=== PATIENT | female | born 2000 | race Caucasian/White ===

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

== ENCOUNTER → 2022-03-21 16:54 | Outpatient (BNVA) | payer MEDICAID, SELFPAY | PROVIDERS: PCP Nurse Practitioner Family; Visit Provider Nurse Practitioner Family | DX: Z13.6 Encounter for screening for cardiovascular disorders (principal); E55.9 Vitamin D deficiency, unspecified; R73.9 Hyperglycemia, unspecified; E03.9 Hypothyroidism, unspecified; R35.0 Frequency of micturition | CPT/HCPCS: 80053; 80061; 81000; 81025; 82306; 83036; 84439; 84443; 85025 ==

== ENCOUNTER → 2022-07-02 09:23 | Outpatient (BNVA) | payer MEDICAID, SELFPAY | PROVIDERS: PCP Nurse Practitioner Family; Visit Provider Nurse Practitioner Family | DX: E03.9 Hypothyroidism, unspecified (principal); E55.9 Vitamin D deficiency, unspecified | CPT/HCPCS: 80053; 82306; 84439; 84443; 85025 ==

== ENCOUNTER → 2022-07-05 15:03 | Outpatient (BNVA) | payer MEDICAID, SELFPAY | PROVIDERS: PCP Nurse Practitioner Family; Visit Provider Nurse Practitioner Family | DX: N93.9 Abnormal uterine and vaginal bleeding, unspecified (principal); R74.8 Abnormal levels of other serum enzymes; M25.50 Pain in unspecified joint; E55.9 Vitamin D deficiency, unspecified; E03.9 Hypothyroidism, unspecified; R79.89 Other specified abnormal findings of blood chemistry; M79.602 Pain in left arm | CPT/HCPCS: 81025 ==

== ENCOUNTER → 2022-07-09 15:05 | Outpatient (BNVA) | payer MEDICAID, SELFPAY | PROVIDERS: PCP Nurse Practitioner Family; Visit Provider Nurse Practitioner Family | DX: M25.50 Pain in unspecified joint (principal) | CPT/HCPCS: 84550; 85651; 86038; 86140; 86200; 86431 ==

== ENCOUNTER → 2022-08-06 09:22 | Outpatient (BNVA) | payer MEDICAID, SELFPAY | PROVIDERS: PCP Family Medicine; Visit Provider Family Medicine | DX: E03.9 Hypothyroidism, unspecified (principal); R79.89 Other specified abnormal findings of blood chemistry; Z51.81 Encounter for therapeutic drug level monitoring | CPT/HCPCS: 80053; 84439; 84443; 84481 ==

== ENCOUNTER 2022-09-10 09:33 | Outpatient (CLI) | payer MEDICAID, SELFPAY ==
--- NOTE | 2022-09-10 09:30 | US_ITS ---
WS: [id number] Complete ABDOMINAL ULTRASOUND HISTORY: R74.8 - Abnormal levels of other serum enzymes COMPARISON: Gallbladder ultrasound 12/05/2021 Liver: 15.0 cm in length. Liver is normal size and echogenicity with no mass or intrahepatic dilatati on. Portal Vein: Normal hepatopetal flow with monophasic waveform. Gallbladder: Prior cholecystectomy. Pancreas: Normal size and echogenicity. CBD: 0.2 cm. Right kidney: 10.8 cm x 4.1 cm x 4.0 cm. No mass, cortical thickening or hydronephrosis. Left kidney: 9.8 cm x 3.6 cm x 3.6 cm. No mass, cortical thickening or hydronephrosis. Spleen: Normal size and echogenicity. Abdominal aorta and IVC are within normal limits. No ascites. US/US abdomen complete* [id number] IMPRESSION: 1. Normal liver. No bile duct dilatation. 2. No renal obstruction. 3. Prior cholecystectomy.
== END 2022-09-10 09:34 | disposition home or self-care (01) ==
LOC: RAD 09:33
PROVIDERS: PCP Family Medicine; Visit Provider Nurse Practitioner Family
DX: R74.8 Abnormal levels of other serum enzymes (principal); Z90.49 Acquired absence of other specified parts of digestive tract
CPT/HCPCS: 76700

== ENCOUNTER → 2022-10-03 13:14 | Outpatient (BNVA) | payer MEDICAID, SELFPAY | PROVIDERS: PCP Family Medicine; Visit Provider Family Medicine | DX: M25.50 Pain in unspecified joint (principal); E03.9 Hypothyroidism, unspecified; M54.16 Radiculopathy, lumbar region | CPT/HCPCS: 84439; 84443; 85651; 86141 ==

== ENCOUNTER 2022-11-17 06:00 | Outpatient (RCR) | payer MEDICAID, SELFPAY | END 2022-12-17 23:59 | disposition home or self-care (01) | LOC: APT 06:00 | PROVIDERS: PCP Family Medicine; Visit Provider Nurse Practitioner Family | DX: M54.16 Radiculopathy, lumbar region (principal) | CPT/HCPCS: 97110; 97161 ==

== ENCOUNTER 2022-12-18 06:00 | Outpatient (RCR) | payer MEDICAID, SELFPAY | END 2023-01-14 23:59 | disposition home or self-care (01) | LOC: APT 06:00 | PROVIDERS: PCP Family Medicine; Visit Provider Nurse Practitioner Family | DX: M54.16 Radiculopathy, lumbar region (principal) | CPT/HCPCS: 97110 ==

== ENCOUNTER 2023-01-15 06:00 | Outpatient (RCR) | payer MEDICAID, SELFPAY | END 2023-02-14 23:59 | disposition home or self-care (01) | LOC: APT 06:00 | PROVIDERS: PCP Family Medicine; Visit Provider Nurse Practitioner Family | DX: M54.16 Radiculopathy, lumbar region (principal) | CPT/HCPCS: 97110; 97112 ==

== ENCOUNTER → 2023-01-22 10:51 | Outpatient (BNVA) | payer MEDICAID, SELFPAY | PROVIDERS: PCP Family Medicine; Visit Provider Nurse Practitioner Women's Health | DX: Z32.01 Encounter for pregnancy test, result positive (principal); Z32.02 Encounter for pregnancy test, result negative; E03.9 Hypothyroidism, unspecified; N91.2 Amenorrhea, unspecified | CPT/HCPCS: 81025; 84146; 84315; 84439; 84443; 84702 ==

== ENCOUNTER → 2023-01-24 10:00 | Outpatient (BNVA) | payer MEDICAID, SELFPAY | PROVIDERS: PCP Family Medicine; Visit Provider Nurse Practitioner Women's Health | DX: N93.9 Abnormal uterine and vaginal bleeding, unspecified (principal) | CPT/HCPCS: 84702 ==

== ENCOUNTER → 2023-01-27 13:10 | Outpatient (BNVA) | payer MEDICAID, SELFPAY | PROVIDERS: PCP Family Medicine; Visit Provider Obstetrics & Gynecology | DX: O20.0 Threatened abortion (principal) | CPT/HCPCS: 76817; 84702 ==

== ENCOUNTER → 2023-01-29 12:45 | Outpatient (BNVA) | payer MEDICAID, SELFPAY | PROVIDERS: PCP Family Medicine; Visit Provider Nurse Practitioner Women's Health | DX: N93.9 Abnormal uterine and vaginal bleeding, unspecified (principal) | CPT/HCPCS: 84702 ==

== ENCOUNTER → 2023-02-11 14:00 | Outpatient (BNVA) | payer MEDICAID, SELFPAY | PROVIDERS: PCP Family Medicine; Visit Provider Nurse Practitioner Women's Health | DX: Z34.90 Encounter for supervision of normal pregnancy, unspecified, unspecified trimester (principal); E03.9 Hypothyroidism, unspecified | CPT/HCPCS: 81000; 84439; 84443 ==

== ENCOUNTER 2023-03-03 18:02 | Emergency (ER) | payer MEDICAID, SELFPAY ==
[2023-03-03 18:07] VITALS: BP 147/84; PULSE 81; RESP 18; TEMP 36.6; O2SAT 98; BMI 36.6
[2023-03-03 19:29] LABS: Basophils % 0.4 %; Eosinophils # 0.1 10^3/uL (0.0-0.8); Eosinophils % 1.1 %; Hemoglobin 13.6 g/dL (11.5-15.3); Lymphocytes # 2.2 10^3/uL (1.5-6.5); Lymphocytes % 20.5 %; Mean Corpuscular Hemoglobin 29.3 pg (28.0-34.0); Mean Corpuscular Volume 86.2 fl (81-99); Mean Platelet Volume 11.4 fL (7.4-10.4); Monocytes # 0.6 10^3/uL (0.2-0.9); Monocytes % 5.6 %; Neutrophils # 7.87 10^3/uL (1.8-8.0); Nucleated Red Blood Cells % 0 %; Platelet Count 250 10^3/cmm (130-400); Red Blood Count 4.64 10^6/uL (4.1-5.3); Red Cell Distribution Width 12.8 % (12.1-15.1); White Blood Count 10.9 10^3/uL (4.5-13.0)
--- NOTE | 2023-03-04 06:10 | ED_ITS ---
HPI - Female Genitourinary General: Chief complaint: Urogenital-Female Stated complaint: 9-12 Weeks Preg\Bleeding History of Present Illness: Patient left without being seen. Her triage was done after I had completed my shift. Date of Last Menstrual Period: 12/02/22 [facility] ED PFSH: Medical History No pertinent past medical history Denies: diabetes, asthma, hypertension, seizures, DVT/PE. Primary care provider is at the [facility] Surgical History History of placement of ear tubes Hx of colonoscopy (~2017) negative S/P laparoscopy 10/29/2018--left partial salpingectomy with removal of paratubal cyst by Dr. Falk at [facility]. On laparoscopy she was noted to have poor is left paratubal cyst. Attempt was made to resect this cyst without damaging the tube however bleeding was encountered and pathology like to be removed. Cytology done was benign. Pathology of the cyst showed benign simple paratubal cyst measuring 4 x 3 x 2 cm. S/P tonsillectomy and adenoidectomy And tympanostomy at age 9 Status post delivery 03/12/2021--primary low transverse delivery for arrest of dilation performed by Dr. Falk at [facility]. Primary low transverse delivery wit h double layer closure, 2 cm inferior extension in the middle of the lower segment, hemorrhage due to atony with an EBL of 1200 but responded to uterotonic's Status post laparoscopic cholecystectomy (12/17/21) Status post surgery Ligament repair to right thumb in 2016 Family History Family/Other Diabetes maternal aunt, maternal uncle, cousin --- All Type 1 Heart disease maternal great uncle, maternal great aunt Mother Diabetes Type2 Grandmother Thyroid condition maternal Denies family history of Colon cancer Ovarian cancer Hyperlipidemia Breast cancer Anesthesia complication Hypertension Uterine cancer Stroke Social History Smoking and tobacco status: current some day smoker e-cigarettes E-Cigarette Details: vaporizer device E-cig/vape details: vapes about daily Second hand smoke exposure: No Alcohol intake: never Marital status: Single Number of children: 1 Current gender identity: Female Special timoteo needs: No Female Reproductive History: Date of last menstrual period: 12/02/22 Course Vital Signs: Vital signs: Vital Signs Temperature 97.9 F 03/03/23 18:07 Pulse Rate 81 03/03/23 18:07 Respiratory Rate 18 03/03/23 18:07 Blood Pressure 147/84 03/03/23 18:07 Pulse Oximetry 98 03/03/23 18:07 Oxygen Delivery Me thod Room Air 03/03/23 18:07 MDM - Female Medical Decision Making Patient left without being seen. Lab Data 03/03/23 19:15 Laboratory Results WBC 10.9 10^3/uL (4.5-13.0) 03/03/23 19:15 RBC 4.64 10^6/uL (4.1-5.3) 03/03/23 19:15 Hgb 13.6 g/dL (11.5-15.3) 03/03/23 19:15 Hct 40.0 % (37.0-47.0) 03/03/23 19:15 MCV 86.2 fl (81-99) 03/03/23 19:15 MCH 29.3 pg (28.0-34.0) 03/03/23 19:15 MCHC 34.0 g/dL (30.0-36.0) 03/03/23 19:15 RDW 12.8 % (12.1-15.1) 03/03/23 19:15 Plt Count 250 10^3/cmm (130-400) 03/03/23 19:15 MPV 11.4 fL (7.4-10.4) H 03/03/23 19:15 Neut % (Auto) 72.0 % 03/03/23 19:15 Lymph % (Auto) 20.5 % 03/03/23 19:15 [place] % (Auto) 5.6 % 03/03/23 19:15 Eos % (Auto) 1.1 % 03/03/23 19:15 Baso % (Auto) 0.4 % 03/03/23 19:15 Neut # (Auto) 7.87 10^3/uL (1.8-8.0) 03/03/23 19:15 Lymph # (Auto) 2.2 10^3/uL (1.5-6.5) 03/03/23 19:15 [place] # (Auto) 0.6 10^3/uL (0.2-0.9) 03/03/23 19:15 Eos # (Auto) 0.1 10^3/uL (0.0-0.8) 03/03/23 19:15 Baso # (Auto) 0.0 10^3/uL (0.0-0.1) 03/03/23 19:15 Nucleated RBC % (auto) 0 % 03/03/23 19:15 Nucleated RBCs # 0.0 /100WBC 03/03/23 19:15 Ser , Semi-Qnt 30434.00 mIU/mL 03/03/23 19:15 Discharge Plan Discharge Patient Disposition: Left Without Being Seen Coding Level of Care Code ED Supervisor [employer] for Yassine Rogers
== END 2023-03-03 22:19 | disposition left against medical advice (07) ==
PROVIDERS: Emergency Medicine; Emergency Provider Family Medicine; PCP Obstetrics & Gynecology
DX: O20.9 Hemorrhage in early pregnancy, unspecified (principal); Z3A.00 Weeks of gestation of pregnancy not specified; Z53.21 Procedure and treatment not carried out due to patient leaving prior to being seen by health care provider
CPT/HCPCS: 36415; 80307; 80503; 81000; 83036; 84443; 84702; 85025; 85027; 86592; 86695; 86696; 86762; 86803; 86850; 86870; 86900; 87086; 87340; 87806

== ENCOUNTER → 2023-03-12 09:08 | Outpatient (BNVA) | payer MEDICAID, SELFPAY | PROVIDERS: PCP Obstetrics & Gynecology; Visit Provider Obstetrics & Gynecology | DX: Z34.90 Encounter for supervision of normal pregnancy, unspecified, unspecified trimester (principal) | CPT/HCPCS: 81000 ==

== ENCOUNTER → 2023-03-13 12:37 | Outpatient (BNVA) | payer MEDICAID, SELFPAY | PROVIDERS: PCP Obstetrics & Gynecology; Visit Provider Obstetrics & Gynecology | DX: E03.9 Hypothyroidism, unspecified (principal); O99.280 Endocrine, nutritional and metabolic diseases complicating pregnancy, unspecified trimester | CPT/HCPCS: 82950; 85025 ==

== ENCOUNTER → 2023-03-26 10:40 | Outpatient (BNVA) | payer MEDICAID, SELFPAY | PROVIDERS: PCP Obstetrics & Gynecology; Visit Provider Obstetrics & Gynecology | DX: O09.899 Supervision of other high risk pregnancies, unspecified trimester (principal); Z3A.00 Weeks of gestation of pregnancy not specified | CPT/HCPCS: 81000; 87491; 87591; 87661 ==

== ENCOUNTER → 2023-04-23 09:50 | Outpatient (BNVA) | payer MEDICAID, SELFPAY | PROVIDERS: PCP Obstetrics & Gynecology; Visit Provider Obstetrics & Gynecology | DX: O09.899 Supervision of other high risk pregnancies, unspecified trimester (principal); Z3A.00 Weeks of gestation of pregnancy not specified | CPT/HCPCS: 81000 ==

== ENCOUNTER → 2023-05-28 13:29 | Outpatient (BNVA) | payer MEDICAID, SELFPAY | PROVIDERS: PCP Obstetrics & Gynecology; Visit Provider Obstetrics & Gynecology | DX: O09.899 Supervision of other high risk pregnancies, unspecified trimester (principal); Z3A.21 21 weeks gestation of pregnancy | CPT/HCPCS: 81000; 87086 ==

== ENCOUNTER 2023-06-14 00:14 | Outpatient (CLI) | payer MEDICAID, SELFPAY ==
[2023-06-14] VITALS (10 sets, daily range): BP systolic 97–119; BP diastolic 53–73; PULSE 81–90; RESP 16; TEMP 35.7–36.6; BMI 37.5
[2023-06-14 01:19] LABS: Bilirubin Urine Neg (Negative); Blood Urine Neg (Negative); Glucose Urine UA Norm (Normal); Ketones Urine 1+ (Negative); Leukocyte Esterase Urine Negative (Negative); Nitrate Urine Negative (Negative); Protein Urine Trace (Negative); Specific Gravity, Urine 1.025 (1.005-1.030); Urine Appearance Hazy (CLEAR); Urine Color Yellow (Yellow); Urobilinogen Urine Norm (Negative); pH Urine 6 (5-7)
[2023-06-14 01:21] LABS: Bacteria Urine 2+ /hpf; RBC Urine 0-4 /hpf (0-2); WBC Urine 0-4 /hpf (0-5)
--- NOTE | 2023-06-14 03:15 | PC.NURSE ---
Spoke to Erick in Lab regarding [facility] swab for Chlamydia, Gonorrhea and Trichomoniasis. Received instructions to label swab and send down without order in computer as this is a send out lab with no option for computer order. Sample collected 06/14/[address] James. Sample Labeled and sent to lab using tube system at 0318.
== END 2023-06-14 03:37 | disposition home or self-care (01) ==
LOC: OPOB 00:15 → OBGYN 00:15
PROVIDERS: Obstetrics & Gynecology; PCP Obstetrics & Gynecology; Visit Provider Obstetrics & Gynecology
DX: O26.899 Other specified pregnancy related conditions, unspecified trimester (principal); N89.8 Other specified noninflammatory disorders of vagina; Z3A.00 Weeks of gestation of pregnancy not specified
CPT/HCPCS: 81001; 99211

== ENCOUNTER → 2023-06-18 13:49 | Outpatient (BNVA) | payer MEDICAID, SELFPAY | PROVIDERS: PCP Family Medicine; Visit Provider Obstetrics & Gynecology | DX: O09.899 Supervision of other high risk pregnancies, unspecified trimester (principal); Z3A.24 24 weeks gestation of pregnancy | CPT/HCPCS: 81000 ==

== ENCOUNTER 2023-06-19 18:40 | Outpatient (CLI) | payer MEDICAID, SELFPAY ==
--- NOTE | 2023-06-19 18:49 | XR_ITS ---
WS: [id number] Left ankle, 3 views, 06/19/2023 Clinical Data: left ankle pain Comparison: Left ankle, 06/22/2017 Findings: No fractures or dislocations are seen. The ankle mortise is normal. The talus and calcaneus are unrem arkable. No soft tissue swelling over the medial or lateral malleolus is seen. XR/XR ankle LT min 3V* [id number] Impression: Negative left ankle.
== END 2023-06-19 18:41 | disposition home or self-care (01) ==
LOC: RAD 18:42
PROVIDERS: PCP Family Medicine; Visit Provider Emergency Medicine
DX: M25.572 Pain in left ankle and joints of left foot (principal)
CPT/HCPCS: 73610

== ENCOUNTER → 2023-07-16 09:32 | Outpatient (BNVA) | payer MEDICAID, SELFPAY | PROVIDERS: PCP Obstetrics & Gynecology; Visit Provider Obstetrics & Gynecology | DX: O09.899 Supervision of other high risk pregnancies, unspecified trimester (principal); Z3A.28 28 weeks gestation of pregnancy | CPT/HCPCS: 81000; 82950; 84443; 85025 ==

== ENCOUNTER → 2023-07-24 13:52 | Outpatient (BNVA) | payer MEDICAID, SELFPAY | PROVIDERS: PCP Family Medicine; Visit Provider Nurse Practitioner Women's Health | DX: O09.899 Supervision of other high risk pregnancies, unspecified trimester (principal); Z3A.30 30 weeks gestation of pregnancy | CPT/HCPCS: 81000 ==

== ENCOUNTER 2023-07-27 20:28 | Outpatient (CLI) | payer MEDICAID, SELFPAY ==
[2023-07-27] VITALS (20 sets, daily range): BP systolic 99–125; BP diastolic 59–84; PULSE 81–115; RESP 15–16; TEMP 36.7; O2SAT 96–100; BMI 38.2
[2023-07-27 21:47] LABS: Blood Urine 2+ (Negative); Glucose Urine UA 2+ (Normal); Ketones Urine 2+ (Negative); Protein Urine Trace (Negative); Specific Gravity, Urine 1.015 (1.005-1.030); Urine Appearance Cloudy (CLEAR); Urine Color Yellow (Yellow); pH Urine 7 (5-7)
[2023-07-27 21:48] LABS: Add Urine Culture? Yes; Bacteria Urine 3+ /hpf; Bilirubin Urine Neg (Negative); Leukocyte Esterase Urine 1+ (Negative); Mucus Urine 1+ /hpf; Nitrate Urine Negative (Negative); RBC Urine 0-4 /hpf (0-2); Urobilinogen Urine 1 mg/dL (Negative); WBC Urine 0-4 /hpf (0-5)
[2023-07-27 22:38] LABS: Glucose Point of Care 107 mg/dL (70-110)
[2023-07-27] MEDS: lactated ringers 1,000 ML 150 ML IV (23:00)
[2023-07-27] MEDS: famotidine 20 mg Tablet 10 MG PO (23:15)
[2023-07-27] MEDS: terbutaline 1 mg/mL INJ 0.25 MG SUBCUT (23:27)
[2023-07-27] MEDS: NIFEdipine 10 mg Capsule PO (23:53)
[2023-07-28] VITALS (108 sets, daily range): BP systolic 88–130; BP diastolic 50–81; PULSE 86–129; O2SAT 93–100
[2023-07-28] MEDS: ampicillin 2,000 MG in sodium chloride 0.9% (plus) 50 ML 100 MG IV (02:03)
[2023-07-28] MEDS: fentaNYL 50 mcg/mL INJ 2mL 25 MCG IVP (02:04)
[2023-07-28] MEDS: dextrose 5%-lactated ringers 1,000 ML 125 ML IV (02:04)
[2023-07-28 07:04] LABS: Bilirubin Urine Neg (Negative); Blood Urine Neg (Negative); Glucose Urine UA Norm (Normal); Ketones Urine 1+ (Negative); Leukocyte Esterase Urine Negative (Negative); Nitrate Urine Negative (Negative); Protein Urine Neg (Negative); Specific Gravity, Urine 1.025 (1.005-1.030); Urine Appearance Clear (CLEAR); Urine Color Yellow (Yellow); Urobilinogen Urine Norm (Negative); pH Urine 6 (5-7)
[2023-07-28 07:16] LABS: Add Urine Culture? No; Bacteria Urine 1+ /hpf; Mucus Urine 1+ /hpf; RBC Urine 0-4 /hpf (0-2); Squamous Epithelial Cell Urine 0-4 /hpf (0-5); WBC Urine 0-4 /hpf (0-5)
[2023-07-28] MEDS: NIFEdipine 10 mg Capsule PO (08:01)
--- NOTE | 2023-07-28 08:03 | PM.OBTRLD ---
OB L&D Triage Visit Information: Date of evaluation: 07/28/23 Reason for evaluation: threatened labor Comments/Additional reason(s) for visit: 22-year-old female G2, P1 at 30 point 4/7 weeks gestation with a JOHNIE of 10/01/2023 observed overnight on labor and delivery with complaints of painful contractions, and low back pain. Patient has history of gestational diabetes, has been following her blood sugars at home. States yesterday her blood sugar was 237. Patient states she has been with family the evening of 07/27/2023, out walking with light activities x2 hours. She admits to good movement, denies leakage of fluid or vaginal bleeding. She denies headaches of blurred vision chest pain or shortness of breath. Discussion of contractions without cervical change with patient, encouraged healthy eating and increase hydration. EFM?initially with contractions every 2 to 5 minutes with reassuring reactivity. After IV fluid hydration, 1 dose of terbutaline 0.25 mg subcu, followed by Procardia 10 mg p.o. contractions have resolved. LR IV was ordered but nursing staff accidentally administered D5LR resulting in an elevated blood sugar of 176 fasting this am, where initially it was 107at beginning of observation.. UA?initial ketones +2 after hydration +1. This was addressed with patient and the need for small frequent meals and increase hydration. Patient has a visit with Dr. James 07/29/2023 and I encouraged her to take a fasting blood sugar as well as her blood sugar log in for review. Small quality meals with types of carbs and proteins reviewed, patient understands.... Evaluation: Baseline heart rate: 130 monitor accelerations: Present 15x15 monitor decelerations: None station: -4 Laboratory results: Laboratory Tests 07/27/23 07/27/23 07/28/23 20:55 22:31 06:45 POC Glucose 107 Urine Color Yellow Yellow Urine Appearance Cloudy A Clear Urine pH 7 6 Ur Specific Gravit y 1.015 1.025 Urine Protein Trace Neg Urine Glucose (UA) 2+ H Norm Urine Ketones 2+ H 1+ H Urine Blood 2+ H Neg Urine Nitrate Negative Negative Urine Bilirubin Neg Neg Urine Urobilinogen 1 H Norm Ur Leukocyte Lissette ase 1+ H Negative Urine RBC 0-4 H 0-4 H Urine WBC 0-4 H 0-4 H Ur Squamous Epith Cells 5-10 H 0-4 H Amorphous Sediment Not Reportable Not Reportable Urine Bacteria 3+ H 1+ H Urine Mucus 1+ 1+ Vital signs: Vital Signs - 24 hr 07/27/23 20:49 07/27/23 21:08 07/27/23 21:22 Temperature Pulse Rate 93 90 96 Respiratory Rate Blood Pressure 125/76 123/61 124/68 Pulse Oximetry Oxygen Delivery Me thod 07/27/23 21:37 07/27/23 21:52 07/27/23 22:08 Temperature Pulse Rate 90 94 93 Respiratory Rate Blood Pressure 121/67 125/84 104/64 Pulse Oximetry Oxygen Delivery Me thod 07/27/23 22:23 07/27/23 22:53 07/27/23 23:08 Temperature Pulse Rate 87 88 81 Respiratory Rate Blood Pressure 103/63 108/76 118/75 Pulse Oximetry Oxygen Delivery Me od 07/27/23 23:25 07/27/23 23:30 07/27/23 23:35 Temperature Pulse Rate 84 90 96 Respiratory Rate Blood Pressure [facility] 99 98 [facility] 23:38 07/27/23 23:40 07/27/23 23:45 Temperature Pulse Rate 97 107 H 108 H Respiratory Rate Blood Pressure 115/68 Pulse Oximetry 98 97 [facility] 07/27/23 23:50 07/27/23 23:53 07/27/23 23:55 Temperature Pulse Rate 112 H 115 H 113 H Respiratory Rate Blood Pressure 99/59 Pulse Oximetry 96 [facility] 07/28/23 00:00 07/28/23 00:05 07/28/23 00:08 Temperature Pulse Rate 110 H 103 H 111 H Respiratory Rate Blood Pressure 88/54 Pulse Oximetry 97 97 [facility] 07[facility]28/23 00:10 07/28/23 00:15 07/28/23 00:20 Temperature Pulse Rate 111 H 117 H 118 H Respiratory Rate Blood Pressure Pulse Oximetry 99 98 97 Oxygen Delivery Me od 07/28/23 00:22 07/28/23 00:25 07/28/23 00:30 Temperature Pulse Rate 115 H 119 H 118 H Respiratory Rate Blood Pressure 94/50 Pulse Oximetry 99 98 [facility] 07[facility]23 00:35 07/28/23 00:37 07/28/23 00:40 Temperature Pulse Rate 116 H 112 H 113 H Respiratory Rate Blood Pressure 90/52 Pulse Oximetry 96 97 Oxygen Delivery Me thod 07/28/23 00:51 07/28/23 00:53 07/28/23 00:57 Temperature Pulse Rate 111 H 125 H 114 H Respiratory Rate Blood Pressure 129/72 124/66 Pulse Oximetry 98 Oxygen Delivery Me thod 07/28/23 00:58 07/28/23 00:59 07/28/23 00:58 Temperature Pulse Rate 120 H 126 H 122 H Respiratory Rate Blood Pressure 121/66 123/65 Pulse Oximetry 97 Oxygen Delivery Me thod 07/28/23 01:00 07/28/23 01:01 07/28/23 01:02 Temperature Pulse Rate 113 H 125 H 115 H Respiratory Rate Blood Pressure 121/62 123/62 122/62 Pulse Oximetry Oxygen Delivery Me thod 07/28/23 01:03 07/28/23 01:04 07/28/23 01:03 Temperature Pulse Rate 129 H 106 H 111 H Respiratory Rate Blood Pressure 113/58 119/61 Pulse Oximetry 97 Oxygen Delivery Me thod 07/28/23 01:05 07/28/23 01:06 07/28/23 01:07 Temperature Pulse Rate 113 H 109 H 115 H Respiratory Rate Blood Pressure 113/62 110/59 104/58 Pulse Oximetry Oxygen Delivery Me thod 07/28/23 01:08 07/28/23 01:09 07/28/23 01:08 Temperature Pulse Rate 114 H 108 H 112 H Respiratory Rate Blood Pressure 109/64 122/69 Pulse Oximetry 98 Oxygen Delivery Me thod 07/28/23 01:13 07/28/23 01:18 07/28/23 01:23 Temperature Pulse Rate 110 H 118 H 108 H Respiratory Rate Blood Pressure Pulse Oximetry 98 97 98 Oxygen Delivery Me thod 07/28/23 01:25 07/28/23 01:28 07/28/23 01:33 Temperature Pulse Rate 107 H 117 H 114 H Respiratory Rate Blood Pressure 111/59 Pulse Oximetry 98 97 Oxygen Delivery Me thod 07/28/23 01:39 07/28/23 01:44 07/28/23 01:49 Temperature Pulse Rate 113 H 109 H 116 H Respiratory Rate Blood Pressure Pulse Oximetry 99 97 98 Oxygen Delivery Me thod 07/28/23 01:54 07/28/23 01:55 07/28/23 01:59 Temperature Pulse Rate 108 H 110 H 116 H Respiratory Rate Blood Pressure 110/65 Pulse Oximetry 98 97 Oxygen Delivery Me thod 07/27/23 20:55 07/28/23 02:04 07/28/23 02:10 Temperature 98.1 F Pulse Rate 105 H 117 H Respiratory Rate 15 Blood Pressure 113/70 Pulse Oximetry 97 Oxygen Delivery Me thod 07/28/23 02:09 07/28/23 02:14 07/28/23 02:19 Temperature Pulse Rate 112 H 103 H 110 H Respiratory Rate Blood Pressure Pulse Oximetry 97 97 98 Oxygen Delivery Me thod 07/28/23 02:24 07/28/23 02:25 07/28/23 02:29 Temperature Pulse Rate 102 H 104 H 107 H Respiratory Rate Blood Pressure 104/63 Pulse Oximetry 97 97 Oxygen Delivery Me thod 07/28/23 02:34 07/28/23 02:39 07/28/23 02:40 Temperature Pulse Rate 118 H 110 H 109 H Respiratory Rate Blood Pressure 95/52 Pulse Oximetry 98 97 Oxygen Delivery Me thod 07/28/23 02:44 07/28/23 02:49 07/28/23 02:55 Temperature Pulse Rate 108 H 110 H 98 Respiratory Rate Blood Pressure 98/62 Pulse Oximetry 97 98 93 Oxygen Delivery Me thod 07/28/23 02:54 07/28/23 02:59 07/28/23 03:04 Temperature Pulse Rate 103 H 111 H 106 H Respiratory Rate Blood Pressure Pulse Oximetry 96 96 97 Oxygen Delivery Me thod 07/28/23 03:09 07/28/23 03:10 07/28/23 03:14 Temperature Pulse Rate 98 103 H 103 H Respiratory Rate Blood Pressure 123/57 Pulse Oximetry 98 98 Oxygen Delivery Me thod 07/28/23 03:19 07/28/23 03:25 07/28/23 03:24 Temperature Pulse Rate 99 102 H 98 Respiratory Rate Blood Pressure 114/62 Pulse Oximetry 98 98 Oxygen Delivery Me thod 07/28/23 03:29 07/27/23 22:56 07/28/23 03:34 Temperature Pulse Rate 95 90 Respiratory Rate 16 Blood Pressure Pulse Oximetry 97 97 Oxygen Delivery Me thod 07/28/23 03:39 07/28/23 03:40 07/28/23 03:44 Temperature Pulse Rate 95 90 88 Respiratory Rate Blood Pressure 104/57 Pulse Oximetry 97 97 Oxygen Delivery Me thod 07/28/23 03:49 07/28/23 03:55 07/28/23 03:54 Temperature Pulse Rate 88 88 94 Respiratory Rate Blood Pressure 108/55 Pulse Oximetry 97 97 Oxygen Delivery Me thod 07/28/23 03:59 07/28/23 04:04 07/28/23 04:09 Temperature Pulse Rate 94 96 101 H Respiratory Rate Blood Pressure Pulse Oximetry 97 97 97 Oxygen Delivery Me thod 07/28/23 04:10 07/28/23 04:14 07/28/23 04:19 Temperature Pulse Rate 99 99 98 Respiratory Rate Blood Pressure 111/65 Pulse Oximetry 97 97 Oxygen Delivery Me thod 07/28/23 04:25 07/28/23 04:24 07/28/23 04:29 Temperature Pulse Rate 103 H 106 H 100 Respiratory Rate Blood Pressure 108/57 Pulse Oximetry 97 97 Oxygen Delivery Me thod 07/28/23 04:34 07/28/23 04:39 07/28/23 04:40 Temperature Pulse Rate 95 96 97 Respiratory Rate Blood Pressure 118/64 Pulse Oximetry 97 98 Oxygen Delivery Me thod 07/28/23 04:44 07/28/23 04:49 07/28/23 04:49 Temperature Pulse Rate 91 101 H Respiratory Rate Blood Pressure Pulse Oximetry 98 94 98 Oxygen Delivery Me thod 07/28/23 04:49 07/28/23 04:56 07/28/23 05:01 Temperature Pulse Rate 104 H 99 102 H Respiratory Rate Blood Pressure Pulse Oximetry 99 98 Oxygen Delivery Me thod 07/28/23 05:06 07/28/23 05:10 07/28/23 05:11 Temperature Pulse Rate 92 92 92 Respiratory Rate Blood Pressure 127/81 Pulse Oximetry 98 100 Oxygen Delivery Me thod 07/28/23 05:16 07/28/23 05:21 07/28/23 05:25 Temperature Pulse Rate 96 99 98 Respiratory Rate Blood Pressure 118/69 Pulse Oximetry 98 97 Oxygen Delivery Me thod 07/28/23 05:26 07/28/23 05:31 07/28/23 05:36 Temperature Pulse Rate 96 95 101 H Respiratory Rate Blood Pressure Pulse Oximetry 98 98 98 Oxygen Delivery Me thod 07/28/23 05:40 07/28/23 05:41 07/28/23 05:46 Temperature Pulse Rate 93 96 95 Respiratory Rate Blood Pressure 121/68 Pulse Oximetry 97 97 Oxygen Delivery Me thod 07/28/23 05:51 07/28/23 05:56 07/28/23 05:56 Temperature Pulse Rate 96 93 Respiratory Rate Blood Pressure 124/66 Pulse Oximetry 98 94 98 Oxygen Delivery Me od 07/28/23 05:56 07/28/23 06:01 07/28/23 06:10 Temperature Pulse Rate 101 H 101 H 93 Respiratory Rate Blood Pressure 124/67 Pulse Oximetry 98 Oxygen Delivery Me od 07/28/23 06:25 07/28/23 06:55 07/28/23 07:10 Temperature Pulse Rate 86 96 87 Respiratory Rate Blood Pressure 130/68 102/60 117/80 Pulse Oximetry Oxygen Delivery Me od 07/28/23 07:26 07/28/23 04:25 07/28/23 05:25 Temperature Pulse Rate 97 Respiratory Rate Blood Pressure 120/68 [facility] 07/28/23 04:59 07/28/23 06:04 07/28/23 06:42 Temperature Pulse Rate Respiratory Rate Blood Pressure Pulse [facility]ximetry [facility] Room Air Room Air 07/28/23 07:40 07/28/23 07:55 07/27/23 20:55 Temperature 98.1 F Pulse Rate 89 89 Respiratory Rate 15 Blood Pressure 92/51 97/59 [facility] 07/27/23 22:56 Temperature Pulse Rate Respiratory Rate 16 Blood Pressure Pulse [facility]ximetry [facility] JOHNIE Calculator Estimated Delivery Date Method Current WG Current Estimate 10/01/23 Ultrasound #1 30w 5d Other Estimates 09/08/23 LMP (Certain) 34w 0d 10/06/23 Ultrasound #2 30w 0d Final Diagnosis Final Diagnosis (1) 30 weeks gestation of : Status: Acute Code(s): Z3A.30 - 30 weeks gestation of (2) uterine contractions in third trimester, antepartum: Plan: Treated with IV hydration, terbutaline 0.25 subcu (1 dose), Procardia 10 mg p.o. x2. Resolution of contractions via EFM. Status: Acute Code(s): O47.03 - False labor before 37 completed weeks of gestation, third trimester (3) H/O: : Status: Acute Code(s): Z98.891 - History of uterine scar from previous surgery (4) Supervision of other high-risk : Status: Acute Code(s): O09.899 - Supervision of other high risk pregnancies, unspecified trimester (5) Gestational diabetes: Status: Acute Code(s): O24.419 - Gestational diabetes mellitus in , unspecified control (6) History of macrosomia in in prior , currently : Status: Acute Code(s): O09.299 - Supervision of with other poor reproductive or obstetric history, unspecified trimester (7) History of pre-eclampsia in prior , currently : Status: Acute Code(s): O09.299 - Supervision of with other poor reproductive or obstetric history, unspecified trimester (8) History of hemorrhage: Status: Acute Code(s): Z87.59 - Personal history of other complications of , childbirth and the puerperium (9) Hypothyroidism affecting : Status: Acute Code(s): O99.280 - Endocrine, nutritional and metabolic diseases complicating , unspecified trimester; E03.9 - Hypothyroidism, unspecified Other Information/Follow up P. Will discharge to home patient encouraged to keep follow-up appointment tomorrow 07/29/[address] James. Patient is encouraged to take her fasting blood sugar as well as her blood sugar log in for review at that visit. Patient is encouraged to continue increased hydration as well as small frequent nutritious meals. Patient encouraged to return to labor and delivery if painful contractions, leakage of fluid vaginal bleeding or decreased movement occurs. Patient verbalizes understanding.. Coding Level of Care Code Acute Code for Chg Fwd Diagnoses 30 weeks gestation of Z3A.30 uterine contractions in third trimester, antepartum O47.03 H/O: Z98.891 Supervision of other high-risk O09.899 Gestational diabetes O24.419 History of macrosomia in in prior , currently O09.299 History of pre-eclampsia in prior , currently O09.299 History of hemorrhage Z87.59 Hypothyroidism affecting O99.280; E03.9
[2023-07-28 08:17] LABS: Glucose Point of Care 176 mg/dL (70-110)
== END 2023-07-28 08:00 | disposition home or self-care (01) ==
LOC: OPOB 20:29 → OBGYN 20:30
PROVIDERS: PCP Family Medicine; Visit Provider Obstetrics & Gynecology
DX: O47.03 False labor before 37 completed weeks of gestation, third trimester (principal); Z3A.30 30 weeks gestation of pregnancy; Z98.891 History of uterine scar from previous surgery; O24.419 Gestational diabetes mellitus in pregnancy, unspecified control; O09.299 Supervision of pregnancy with other poor reproductive or obstetric history, unspecified trimester; Z87.59 Personal history of other complications of pregnancy, childbirth and the puerperium; O99.280 Endocrine, nutritional and metabolic diseases complicating pregnancy, unspecified trimester; E03.9 Hypothyroidism, unspecified
CPT/HCPCS: 36415; 36416; 59025; 81001; 82962; 87086; 96372; 96374; 99211; J0290; J3010; J3105; J7120; J7121

== ENCOUNTER 2023-07-29 20:27 | Outpatient (CLI) | payer MEDICAID, SELFPAY ==
[2023-07-29 20:22] VITALS: BMI 38.4
[2023-07-29 20:39] VITALS: BP 129/76; PULSE 97
[2023-07-29 21:29] VITALS: BP 129/76; PULSE 83; RESP 16; TEMP 36.6
[2023-07-29 21:39] VITALS: RESP 16; TEMP 36.6
[2023-07-29 21:47] LABS: Nitrazine Paper, PH Negative
== END 2023-07-29 21:30 | disposition home or self-care (01) ==
LOC: OPOB 20:28 → OBGYN 20:32
PROVIDERS: PCP Family Medicine; Visit Provider Obstetrics & Gynecology
DX: O26.899 Other specified pregnancy related conditions, unspecified trimester (principal); Z3A.00 Weeks of gestation of pregnancy not specified
CPT/HCPCS: 59025; 81000; 83986; 99211

== ENCOUNTER → 2023-07-31 09:38 | Outpatient (BNVA) | payer MEDICAID, SELFPAY | PROVIDERS: PCP Obstetrics & Gynecology; Visit Provider Obstetrics & Gynecology | DX: O09.299 Supervision of pregnancy with other poor reproductive or obstetric history, unspecified trimester (principal); Z3A.00 Weeks of gestation of pregnancy not specified | CPT/HCPCS: 84156 ==

== ENCOUNTER → 2023-08-04 15:32 | Outpatient (BNVA) | payer MEDICAID, SELFPAY | PROVIDERS: PCP Obstetrics & Gynecology; Visit Provider Obstetrics & Gynecology | DX: O09.899 Supervision of other high risk pregnancies, unspecified trimester (principal); Z3A.00 Weeks of gestation of pregnancy not specified | CPT/HCPCS: 81000 ==

== ENCOUNTER 2023-08-25 16:40 | Outpatient (CLI) | payer MEDICAID, SELFPAY ==
[2023-08-25 16:40] VITALS: BMI 40.0
[2023-08-25 16:51] VITALS: BP 125/80; PULSE 104
[2023-08-25 17:11] VITALS: BP 131/88; PULSE 101
== END 2023-08-25 17:17 | disposition home or self-care (01) ==
LOC: OPOB 16:44 → OBGYN 16:46
PROVIDERS: PCP Family Medicine; Visit Provider Family Medicine
DX: O24.419 Gestational diabetes mellitus in pregnancy, unspecified control (principal); Z3A.00 Weeks of gestation of pregnancy not specified
CPT/HCPCS: 59025; 99211

== ENCOUNTER 2023-08-29 01:30 | Outpatient (CLI) | payer MEDICAID, SELFPAY ==
[2023-08-29 01:42] VITALS: BP 130/78; PULSE 87; TEMP 35.8
[2023-08-29 01:45] VITALS: BMI 40.6
[2023-08-29 02:26] VITALS: BP 121/73; PULSE 86
== END 2023-08-29 03:08 | disposition home or self-care (01) ==
LOC: OPOB 01:39 → OBGYN 01:41
PROVIDERS: PCP Family Medicine; Visit Provider Family Medicine
DX: O46.90 Antepartum hemorrhage, unspecified, unspecified trimester (principal); Z3A.00 Weeks of gestation of pregnancy not specified
CPT/HCPCS: 59025; 99211

== ENCOUNTER 2023-08-29 10:30 | Outpatient (CLI) | payer MEDICAID, SELFPAY ==
[2023-08-29 10:49] VITALS: BP 123/85; PULSE 108
[2023-08-29 10:53] VITALS: RESP 17
--- NOTE | 2023-08-29 10:53 | US_ITS ---
WS: [id number] ULTRASOUND OB FOCUSED HISTORY: vaginal bleeding COMPARISON: 05/21/2023. Single intrauterine gestation is identified. Fetus in vertex position. The cervix is obscured by the head. heart rate at 157 BPM. Placenta is fundal and anterior. Grade 1 placenta. No abruption or previa is identified on this exami nation. Normal amount of amniotic fluid. IMPRESSION: 1. Normal cardiac activity. 2. Fundal/anterior placenta. No abruption.
[2023-08-29 11:05] VITALS: BP 126/90; PULSE 108
[2023-08-29 11:09] VITALS: BMI 40.6
[2023-08-29 11:19] VITALS: BP 125/82; PULSE 93
== END 2023-08-29 11:40 | disposition home or self-care (01) ==
LOC: OPOB 10:34 → OBGYN 10:42
PROVIDERS: PCP Family Medicine; Visit Provider Family Medicine
DX: O46.90 Antepartum hemorrhage, unspecified, unspecified trimester (principal); Z3A.00 Weeks of gestation of pregnancy not specified
CPT/HCPCS: 59025; 76815; 99211

== ENCOUNTER 2023-09-01 14:25 | Outpatient (CLI) | payer MEDICAID, SELFPAY ==
[2023-09-01 14:37] VITALS: TEMP 36.2
[2023-09-01 14:38] VITALS: BP 123/84; PULSE 94
[2023-09-01 14:58] VITALS: BP 128/79; PULSE 101
== END 2023-09-01 15:21 | disposition home or self-care (01) ==
LOC: OPOB 14:29 → OBGYN 14:30
PROVIDERS: PCP Family Medicine; Visit Provider Family Medicine
DX: O24.419 Gestational diabetes mellitus in pregnancy, unspecified control (principal); Z3A.00 Weeks of gestation of pregnancy not specified
CPT/HCPCS: 59025; 80503; 86850; 86870; 86900; 99211

== ENCOUNTER → 2023-09-03 13:37 | Outpatient (BNVA) | payer MEDICAID, SELFPAY | PROVIDERS: PCP Family Medicine; Visit Provider Family Medicine | DX: R76.8 Other specified abnormal immunological findings in serum (principal) | CPT/HCPCS: 86886 ==

== ENCOUNTER 2023-09-10 07:17 | Outpatient (CLI) | payer MEDICAID, SELFPAY ==
--- NOTE | 2023-09-10 07:45 | US_ITS ---
WS: [id number] ULTRASOUND OB FOCUSED HISTORY: Positive antibody screen, gDM, evaluate umbilical Doppler. COMPARISON: None available. No similar studies. Prior ultrasound 08/29/2023 heart rate at 150 BPM. UMBILICAL ARTERY DOPPLER Waveform analysis: Normal systolic and diastolic velocities. Diastolic velocity remains above the bas janna. Normal upstroke of waveform. SD ratios: SD ratios range from 1.9-2.6, depending upon the location along the umbilical artery. Resistivity indices: 0.5-0.6 Normal amount of amniotic fluid. Single deep vertical pocket 6.2 cm. IMPRESSION: 1. Normal SD ratios. SD ratio is estimated between the 25th and 50th percentile for age. 2. Resistivity indices are also normal and estimated between the 25th and 75th percentile for age.
[2023-09-10 08:04] VITALS: BP 137/83; PULSE 90; TEMP 35.7
[2023-09-10 08:09] VITALS: BMI 42.0
[2023-09-10 08:15] VITALS: RESP 15; TEMP 36.6
[2023-09-10 08:34] VITALS: BP 137/83; PULSE 90; RESP 15; TEMP 36.6
[2023-09-10 09:56] VITALS: TEMP 35.7
[2023-09-10 09:57] VITALS: BP 133/92; PULSE 76
== END 2023-09-10 08:35 | disposition home or self-care (01) ==
LOC: RAD 07:17 → OBGYN 07:59
PROVIDERS: PCP Family Medicine; Visit Provider Family Medicine
DX: O09.899 Supervision of other high risk pregnancies, unspecified trimester (principal); R76.8 Other specified abnormal immunological findings in serum; Z3A.00 Weeks of gestation of pregnancy not specified
CPT/HCPCS: 59025; 76816; 76820

== ENCOUNTER → 2023-11-03 13:11 | Outpatient (BNVA) | payer MEDICAID, SELFPAY | PROVIDERS: PCP Family Medicine; Visit Provider Family Medicine | DX: E03.9 Hypothyroidism, unspecified; Z51.81 Encounter for therapeutic drug level monitoring; Z39.2 Encounter for routine postpartum follow-up; M54.16 Radiculopathy, lumbar region | CPT/HCPCS: 82947; 84439; 84443; 85025 ==

== ENCOUNTER → 2024-01-06 11:41 | Outpatient (BNVA) | payer MEDICAID, SELFPAY | PROVIDERS: PCP Family Medicine; Visit Provider Family Medicine | DX: R73.03 Prediabetes | CPT/HCPCS: 83036 ==

== ENCOUNTER → 2024-01-29 10:45 | Outpatient (BNVA) | payer MEDICAID, SELFPAY | PROVIDERS: PCP Family Medicine; Visit Provider Family Medicine | DX: Z01.419 Encounter for gynecological examination (general) (routine) without abnormal findings (principal) | CPT/HCPCS: 84439; 84443; 85025; 87624 ==

== ENCOUNTER 2024-04-25 22:58 | Emergency (ER) | payer MEDICAID, SELFPAY ==
[2024-04-25 23:01] VITALS: BP 108/76; PULSE 81; RESP 18; TEMP 36.7; O2SAT 98; BMI 36.3
--- NOTE | 2024-04-25 23:10 | CTR_ITS ---
PROCEDURE INFORMATION: Exam: CT Abdomen And Pelvis With Contrast Exam date and time: 04/26/2024 12:12 AM Age: 23 years old Clinical indication: Abdominal pain; Localized; Prior surgery; Surgery date: 6+ months; Surgery type: Gb. Csection x2. Patient HX: Lower abd/pelvic pain with nausea. ; Additional info: Abd pain TECHNIQUE: Imaging protocol: Computed tomography of the abdomen and pelvis with contrast. Radiation optimization: All CT scans at this facility use at least one of these dose optimization techniques: automated exposure control; mA and/or kV adjustment per patient size (includes targeted exams where dose is matched to clinical indication); or iterative reconstruction. Contrast material: OMNI 350; Contrast volume: 100 ml; Contrast route: INTRAVENOUS (IV); COMPARISON: CT angio chest w abd pel w con 11/01/2018 7:38 PM RADIATION DOSE METRICS: Total DLP (mGy-cm): 903.66 FINDINGS: Lungs: Right lower lobe 3.9 cm stable apparent bulla with some thickening of the wall, similar dating back to 11/01/2018 suggestive of a benign process given stability. Liver: Normal. No mass. Gallbladder and bile ducts: Cholecystectomy. Pancreas: Normal. No ductal dilation. Spleen: Normal. No splenomegaly. Adrenal glands: Normal. No mass. Kidneys and ureters: Normal. No hydronephrosis. Stomach and bowel: Prominent fluid in the small bowel without dilation may reflect an enteritis. Appendix: No evidence of appendicitis. Intraperitoneal space: Unremarkable. No free air. No significant fluid collection. Vasculature: Unremarkable. No abdominal aortic aneurysm. Lymph nodes: Scattered subcentimeter short axis mesenteric lymph nodes, nonspecific. Urinary bladder: Unremarkable as visualized. Reproductive: Fluid in the uterine cavity likely related menstrual status. Bones/joints: Unremarkable. No acute fracture. Soft tissues: Unremarkable. CT/CT abdomen pelvis w con* [id number] IMPRESSION: 1. Prominent fluid in the small bowel without dilation may reflect an enteritis. 2. Fluid in the uterine cavity likely related menstrual status. 3. Right lower lobe 3.9 cm stable apparent bulla with some thickening of the wall, similar dating back to 11/01/2018 suggestive of a benign process given stability. 4. Cholecystectomy. 5. Scattered subcentimeter short axis mesenteric lymph nodes, nonspecific.
--- NOTE | 2024-04-25 23:11 | W.ED.ABDPA2 ---
HPI - Abdominal Pain General: Chief Complaint: Abdominal Pain Stated Complaint: lower abd pain Time Seen by Provider: 04/25/24 23:01 Source: patient Mode of arrival: ambulatory Limitations: no limitations History of Present Illness: 23-year-old female states she been having lower abdominal pain states she been having cramping pain throughout the day and then 2 hours ago much worse. States pain sharp in nature in her lower abdomen she rates pain 8 out of 10 denies any dysuria denies any vaginal bleeding denies any vomiting diarrhea Associated Symptoms: Denies chills, diarrhea, dysuria, fever(s), nausea and vomiting Related Data: Date of Last Menstrual Period: 04/18/24 Review of Systems Const: Denies: fever(s), chills, body aches or change in appetite ENMT: Denies: throat pain or dental pain Card: Denies: chest pain Resp: Denies: dyspnea GI: Reports: abdominal pain; Denies: nausea, vomiting or diarrhea : Denies: dysuria Musc: Denies: neck pain or back pain Skin/Breast: Denies: rash Neuro: Denies: headache(s) PFSH ED PFSH: Medical History No pertinent past medical history Denies: diabetes, asthma, hypertension, seizures, DVT/PE. Primary care provider is at the [facility] Surgical History History of placement of ear tubes Status post laparoscopic cholecystectomy (12/17/21) Status post delivery 03/12/2021--primary low transverse delivery for arrest of dilation performed by Dr. Falk at [facility] [place]. Primary low transverse delivery with double layer closure, 2 cm inferior extension in the middle of the lower segment, hemorrhage due to atony with an EBL of 1200 but responded to uterotonic's - rLTCS - 09/08 - [place] Hx of colonoscopy (~2017) negative S/P tonsillectomy and adenoidectomy And tympanostomy at age 9 Status post surgery Ligament repair to right thumb in 2016 S/P laparoscopy 10/29/2018--left partial salpingectomy with removal of paratubal cyst by Dr. Falk at [facility] [place]. On laparoscopy she was noted to have poor is left paratubal cyst. Attempt was made to resect this cyst without damaging the tube however bleeding was encountered and pathology like to be removed. Cytology done was benign. Pathology of the cyst showed benign simple paratubal cyst measuring 4 x 3 x 2 cm. Family History Family/Other Diabetes maternal aunt, maternal uncle, cousin --- All Type 1 Heart disease maternal great uncle, maternal great aunt Mother Diabetes Type2 Grandmother Thyroid disease maternal Denies family history of Colon cancer Ovarian cancer Hyperlipidemia Breast cancer Anesthesia complication Hypertension Uterine cancer Stroke Social History Smoking and tobacco/nicotine status: never used tobacco/nicotine Alcohol intake: current Alcohol intake frequency: few times a month Substance/Drug Use: never Female Reproductive History: Date of last menstrual period: 04/18/24 Physical Exam Const: COMMON NORMALS: no acute distress, patient oriented x3 and healthy appearing HENMT: COMMON NORMALS: normocephalic and atraumatic HEAD & SCALP: normocephalic and atraumatic Eye: COMMON NORMALS: Equal, round and reactive pupils present and EOMs intact bilaterally PUPIL: Yes Equal, round and reactive pupils present Neck/C-Spine: COMMON NORMALS: full ROM Chest: COMMONS NORMALS: normal inspection of the chest Resp: COMMON NORMALS: normal respiratory effort, No retractions, No use of accessory muscles and clear to auscultation bilaterally AUSCULTATION: clear to auscultation bilaterally Cardio: COMMON NORMALS: regular rate, regular rhythm and No murmurs present (Cardio) RATE: regular rate RHYTHM: regular rhythm GI: COMMON NORMALS: Normal to inspection, nondistended, normoactive bowel sounds present, Soft to palpation and no masses PALPATION: Yes Soft to palpation and Yes Tenderness to palpation present (GI) Details: RLQ Extremity: COMMON NORMALS: normal to inspection and full ROM Neuro: COMMON NORMALS: patient oriented x3, moves all extremities and no focal motor deficits Psych: COMMON NORMALS: mental status grossly normal, Normal thought process present and cooperative THOUGHT PROCESS: Normal thought process present Skin: COMMON NORMALS: no rashes or lesions noted and no wounds GENERAL SKIN EXAM: no rashes or lesions noted Course Vital Signs: Vital signs: Vital Signs Temperature 98.0 F 04/25/24 23:01 Pulse Rate 87 04/25/24 23:47 Respiratory Rate 15 04/25/24 23:47 Blood Pressure 115/74 04/25/24 23:47 Pulse Oximetry 99 04/25/24 23:47 Oxygen Delivery Me thod Room Air 04/25/24 23:47 MDM - Abdominal Pain Medical Decision Making Patient presents for abdominal pain CT scan blood work here are normal urinalysis shows a likely UTI we will start her on antibiotics she is stable for discharge she is follow-up with PCP return if worsening Medical Records I reviewed the patient's medical records. Lab Data I reviewed the patient's lab results. 04/25/24 23:32 04/25/24 23:32 Labs/Radiology: Radiology Impressions Abdomen/Pelvis CT 04/25/24 23:10 IMPRESSION: 1. Prominent fluid in the small bowel without dilation may reflect an enteritis. 2. Fluid in the uterine cavity likely related menstrual status. 3. Right lower lobe 3.9 cm stable apparent bulla with some thickening of the wall, similar dating back to 11/01/2018 suggestive of a benign process given stability. 4. Cholecystectomy. 5. Scattered subcentimeter short axis mesenteric lymph nodes, nonspecific. Laboratory Results WBC 11.47 10^3/uL (3.29-11.43) H 04/25/24 23:32 RBC 4.77 10^6/uL (3.85-5.65) 04/25/24 23:32 Hgb 14.00 g/dL (11.27-16.99) 04/25/24 23:32 Hct 40.9 % (36-47) 04/25/24 23:32 MCV 85.7 fl (85-98) 04/25/24 23:32 MCH 29.4 pg (27-33) 04/25/24 23:32 MCHC 34.2 g/dL (30-55) 04/25/24 23:32 RDW 12.4 % (12.1-15.1) 04/25/24 23:32 Plt Count 233 10^3/cmm (157-399) 04/25/24 23:32 MPV 11.6 fL (7.4-10.4) H 04/25/24 23:32 Neut % (Auto) 74.3 % 04/25/24 23:32 Lymph % (Auto) 16.2 % 04/25/24 23:32 [place] % (Auto) 7.3 % 04/25/24 23:32 Eos % (Auto) 1.7 % 04/25/24 23:32 Baso % (Auto) 0.2 % 04/25/24 23:32 Neut # (Auto) 8.53 10^3/uL (1.8-7.7) H 04/25/24 23:32 Lymph # (Auto) 1.9 10^3/uL (0.8-4.8) 04/25/24 23:32 [place] # (Auto) 0.8 10^3/uL (0.2-0.9) 04/25/24 23:32 Eos # (Auto) 0.2 10^3/uL (0.0-0.8) 04/25/24 23:32 Baso # (Auto) 0.0 10^3/uL (0.0-0.1) 04/25/24 23:32 Nucleated RBC % (auto) 0 % 04/25/24 23:32 Nucleated RBCs # 0.0 /100WBC 04/25/24 23:32 Sodium 137 mmol/L (136-145) 04/25/24 23:32 Potassium 3.8 mmol/L (3.5-5.1) 04/25/24 23:32 Chloride 101 mmol/L (98-107) 04/25/24 23:32 Carbon Dioxide 23 mmol/L (22-29) 04/25/24 23:32 Anion Gap 16.8 (5-19) 04/25/24 23:32 BUN 11 mg/dL (6-20) 04/25/24 23:32 Creatinine 0.9 mg/dL (0.5-0.9) 04/25/24 23:32 GFR Calculation 79.0 mL/min (90-130) L 04/25/24 23:32 Glucose 132 mg/dL (65-115) H 04/25/24 23:32 Calculated Osmolality 285 mOsm/kg (285-295) 04/25/24 23:32 Calcium 9.3 mg/dL (8.5-10.5) 04/25/24 23:32 Total Bilirubin 0.6 mg/dL (0.15-1.2) 04/25/24 23:32 AST 30 U/L (0-32) 04/25/24 23:32 ALT 66 U/L (0-33) H 04/25/24 23:32 Alkaline Phosphatase 95 U/L (35-105) 04/25/24 23:32 Total Protein 7.5 g/dL (6.6-8.7) 04/25/24 23:32 Albumin 4.5 g/dL (3.5-5.2) 04/25/24 23:32 Globulin 3.0 g/dL (1.3-4.6) 04/25/24 23:32 Lipase 27 U/L (13-60) 04/25/24 23:32 HCG, Qual Negative (Negative) 04/25/24 23:32 Urine Color Yellow (Yellow) 04/25/24 23:26 Urine Appearance Clear (CLEAR) 04/25/24 23:26 Urine pH 5 (5-7) 04/25/24 23:26 Ur Specific [place] 1.025 (1.005-1.030) 04/25/24 23:26 Urine Protein Trace (Negative) 04/25/24 23:26 Urine Glucose (UA) Norm (Normal) 04/25/24 23:26 Urine Ketones 1+ (Negative) H 04/25/24 23:26 Urine Blood Neg (Negative) 04/25/24 23:26 Urine Nitrate Negative (Negative) 04/25/24 23:26 Urine Bilirubin Neg (Negative) 04/25/24 23:26 Urine Urobilinogen 1 mg/dL (Negative) H 04/25/24 23:26 Ur Leukocyte Esterase Negative (Negative) 04/25/24 23:26 Urine RBC 0-4 /hpf (0-2) H 04/25/24 23:26 Urine WBC 0-4 /hpf (0-5) H 04/25/24 23:26 Ur Squamous Epith Cells 5-10 /hpf (0-5) H 04/25/24 23:26 Amorphous Sediment Not Reportable 04/25/24 23:26 Urine Bacteria 2+ /hpf (NONE) H 04/25/24 23:26 All radiology interpretation(s) finalized by discharge Discharge Plan Discharge Patient Disposition: Home Clinical Impression: Abdominal pain Qualifiers: Abdominal location: generalized Qualified Code(s): R10.84 - Generalized abdominal pain Condition: Stable Prescriptions: New cephalexin 500 mg capsule 500 mg PO TID 7 Days Qty: 21 0RF No Action cholecalciferol (vitamin D3) 10 mcg (400 unit) capsule 10 mcg PO DAILY ferrous sulfate 325 mg (65 mg iron) tablet 325 mg PO DAILY Qty: 30 3RF levothyroxine 75 mcg tablet 75 mcg PO DAILY Qty: 30 6RF Discharge Orders: Discharge ED (Routine); Ordered 04/26/24 Ordered By: Sneha Miguel Referrals: Pablo Bledsoe MD [Primary Care Provider] - 4-7 days Discharge Diet: Advance as tolerated Discharge Activity: Resume usual activity Patient Instructions: Urinary Tract Infection in Women (ED), Abdominal Pain (ED) Coding Level of Care Code ED Assistant Property Manager for Yassine Rogers
[2024-04-25 23:38] VITALS: RESP 14
[2024-04-25] MEDS: morphine 4 mg/mL SDV 1 mL IVP (23:38)
[2024-04-25] MEDS: ondansetron 2 mg/ML SDV 2 mL 4 MG IVP (23:39)
[2024-04-25 23:42] LABS: Add Urine Microscopic? YES; Bilirubin Urine Neg (Negative); Blood Urine Neg (Negative); Glucose Urine UA Norm (Normal); Ketones Urine 1+ (Negative); Leukocyte Esterase Urine Negative (Negative); Nitrate Urine Negative (Negative); Protein Urine Trace (Negative); RBC Urine 0-4 /hpf (0-2); Specific Gravity, Urine 1.025 (1.005-1.030); Urine Appearance Clear (CLEAR); Urine Color Yellow (Yellow); Urobilinogen Urine 1 mg/dL (Negative); WBC Urine 0-4 /hpf (0-5); pH Urine 5 (5-7)
[2024-04-25] MEDS: sodium chloride 0.9% 1,000 ML 999 ML IV (23:42)
[2024-04-25 23:43] LABS: Bacteria Urine 2+ /hpf
[2024-04-25 23:44] LABS: Basophils % 0.2 %; Eosinophils # 0.2 10^3/uL (0.0-0.8); Eosinophils % 1.7 %; Hematocrit 40.9 % (36-47); Lymphocytes # 1.9 10^3/uL (0.8-4.8); Lymphocytes % 16.2 %; Mean Corpuscular HGB Conc 34.2 g/dL (30-55); Mean Corpuscular Hemoglobin 29.4 pg (27-33); Mean Corpuscular Volume 85.7 fl (85-98); Mean Platelet Volume 11.6 fL (7.4-10.4); Monocytes # 0.8 10^3/uL (0.2-0.9); Monocytes % 7.3 %; Neutrophils # 8.53 10^3/uL (1.8-7.7); Neutrophils % 74.3 %; Nucleated Red Blood Cells % 0 %; Platelet Count 233 10^3/cmm (157-399); Red Blood Count 4.77 10^6/uL (3.85-5.65); Red Cell Distribution Width 12.4 % (12.1-15.1); White Blood Count 11.47 10^3/uL (3.29-11.43)
[2024-04-25 23:47] VITALS: BP 115/74; PULSE 87; RESP 15; O2SAT 99
[2024-04-25 23:59] LABS: HCG, Serum Qual Negative (Negative)
[2024-04-26] LABS: Alanine Aminotransferase 66 U/L (0-33); Albumin Level 4.5 g/dL (3.5-5.2); Alkaline Phosphatase 95 U/L (35-105); Anion Gap 16.8 (5-19); Aspartate Amino Transferase 30 U/L (0-32); Blood Urea Nitrogen 11 mg/dL (6-20); Calcium 9.3 mg/dL (8.5-10.5); Carbon Dioxide 23 mmol/L (22-29); Chloride 101 mmol/L (98-107); Creatinine Clr Calc Pharmacy 103.2823; Glucose 132 mg/dL (65-115); Lipase 27 U/L (13-60); Osmolality Calculated 285 mOsm/kg (285-295); Potassium 3.8 mmol/L (3.5-5.1); Sodium 137 mmol/L (136-145); Total Bilirubin 0.6 mg/dL (0.15-1.2); Total Protein 7.5 g/dL (6.6-8.7)
[2024-04-26] MEDS: iohexol 350 mg/mL 500 mL Btl (per mL) IV (00:13)
[2024-04-26 00:36] VITALS: BP 143/95; PULSE 107; O2SAT 100
[2024-04-26] MEDS: cephALEXin 500 mg Capsule PO (01:08)
[2024-04-26 01:19] VITALS: BP 119/70; PULSE 95; O2SAT 98
== END 2024-04-26 01:20 | disposition home or self-care (01) ==
PROVIDERS: Emergency Provider Emergency Medicine; PCP Family Medicine
DX: R10.84 Generalized abdominal pain (principal)
CPT/HCPCS: 74177; 80053; 81001; 83690; 84703; 85025; 96361; 96374; 96375; 99285; J2270; J2405; J7030; Q9967

== ENCOUNTER → 2024-05-10 09:39 | Outpatient (BNVA) | payer MEDICAID, SELFPAY | PROVIDERS: PCP Family Medicine; Visit Provider Family Medicine | DX: Z51.81 Encounter for therapeutic drug level monitoring (principal); E03.9 Hypothyroidism, unspecified; N92.0 Excessive and frequent menstruation with regular cycle; D64.9 Anemia, unspecified; R74.01 Elevation of levels of liver transaminase levels; R51.9 Headache, unspecified | CPT/HCPCS: 80053; 83550; 84439; 84443; 85025 ==

== ENCOUNTER 2024-05-11 23:24 | Emergency (ER) | payer MEDICAID, SELFPAY ==
[2024-05-11 23:25] VITALS: BP 130/83; PULSE 73; RESP 16; TEMP 36.7; O2SAT 99
--- NOTE | 2024-05-11 23:43 | XRR_ITS ---
PROCEDURE INFORMATION: Exam: XR Chest Exam date and time: 05/11/2024 11:47 PM Age: 23 years old Clinical indication: Other: Allergic reaction; Additional info: Allergic rxn TECHNIQUE: Imaging protocol: Radiologic exam of the chest. Views: 1 view. COMPARISON: CR XR chest 2V* [id number] 12/20/2019 2:48 PM FINDINGS: Lungs: Unremarkable. No consolidation. Pleural spaces: Unremarkable. No pleural effusion. No pneumothorax. Heart/Mediastinum: Unremarkable. No cardiomegaly. Bones/joints: Unremarkable. XR/XR chest 1V portable [id number] IMPRESSION: No acute findings.
--- NOTE | 2024-05-11 23:46 | ED_ITS ---
HPI - Allergic Reaction General: Chief complaint: Allergic Reaction Stated complaint: Allergic reaction Time Seen by Provider: 05/11/24 23:31 Source: patient Mode of arrival: ambulatory Limitations: no limitations History of Present Illness: HPI narrative: Patient is a 23-year-old female presenting to the emergency department complaining of allergic reaction prior to arrival. 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 She states that normally she receives a breathing treatment, an antihistamine, and steroids and that it helps with her symptoms. She states that her throat is feeling swollen, however she denies any shortness of breath. Currently she is 99% on room air and does appear to be breathing comfortably. She does not report any other contact with anything allergic, states that this will just happen randomly. She has not seen an flexographic printing machinist, but does see her primary care for this. MD complaint: allergic reaction Onset (ago): minute(s) Exposure: other (Idiopathic hives) Associated symptoms: Reports hoarseness; Deny abdominal pain, nausea or vomiting Severity: moderate Previous Allergic Reaction History: prior ED visit(s) Review of Systems General: Reports: 10 or more systems reviewed and unremarkable except in HPI and below Const: Denies: fever(s), chills or fatigue Eyes: Denies: change in vision ENMT: Reports: hoarseness; Denies: throat pain, ear or mastoid pain or nasal discharge Card: Denies: chest pain, palpitations, swelling of feet/ankles or lightheadedness Resp: Denies: dyspnea, productive cough or wheezing GI: Denies: abdominal pain, nausea, vomiting, diarrhea or constipation : Denies: flank pain, difficulty voiding, dysuria or urinary frequency Musc: Denies: neck pain, back pain or joint pain Skin/Breast: Denies: rash Neuro: Denies: headache(s), numbness in extremities or weakness in extremities All/Imm: Reports: urticaria and throat swelling PFSH ED PFSH: Medical History Hypothyroid Surgical History History of placement of ear tubes Status post laparoscopic cholecystectomy (12/17/21) Status post delivery 03/12/2021--primary low transverse delivery for arrest of dilation performed by Dr. Falk at [facility] [place]. Primary low transverse delivery with double layer closure, 2 cm inferior extension in the middle of the lower segment, hemorrhage due to atony with an EBL of 1200 but responded to uterotonic's - rLTCS - 09/08 - [place] Hx of colonoscopy (~2017) negative S/P tonsillectomy and adenoidectomy And tympanostomy at age 9 Status post surgery Ligament repair to right thumb in 2016 S/P laparoscopy 10/29/2018--left partial salpingectomy with removal of paratubal cyst by Dr. Falk at [facility] [place]. On laparoscopy she was noted to have poor is left paratubal cyst. Attempt was made to resect this cyst without damaging the tube however bleeding was encountered and pathology like to be removed. Cytology done was benign. Pathology of the cyst showed benign simple paratubal cyst measuring 4 x 3 x 2 cm. Family History Family/Other Diabetes maternal aunt, maternal uncle, cousin --- All Type 1 Heart disease maternal great uncle, maternal great aunt Mother Diabetes Type2 Grandmother Thyroid disease maternal Denies family history of Colon cancer Ovarian cancer Hyperlipidemia Breast cancer Anesthesia complication Hypertension Uterine cancer Stroke Social History Smoking and tobacco/nicotine status: never used tobacco/nicotine Alcohol intake: current Alcohol intake frequency: few times a month Substance/Drug Use: never Physical Exam Const: COMMON NORMALS: no acute distress, patient oriented x3 and no limitations GENERAL APPEARANCE: cooperative, comfortable and well developed ORIENTATION/CONSCIOUSNESS: Yes awake, Yes oriented to person, Yes oriented to place and Yes oriented to time HENMT: COMMON NORMALS: normocephalic, atraumatic and hearing grossly normal bilaterally HEAD & SCALP: normocephalic and atraumatic OTHER: Hoarseness of voice. No obvious oropharyngeal edema. Eye: COMMON NORMALS: Equal, round and reactive pupils present, EOMs intact bilaterally and conjunctivae normal CONJUNCTIVA: Yes conjunctivae normal PUPIL: Yes Equal, round and reactive pupils present Neck/C-Spine: COMMON NORMALS: full ROM, supple and no JVD Resp: COMMON NORMALS: normal respiratory effort, No retractions, No use of accessory muscles and clear to auscultation bilaterally EFFORT & INSPECTION: Yes able to speak in complete sentences AUSCULTATION: clear to auscultation bilaterally Cardio: COMMON NORMALS: no JVD, regular rate, regular rhythm, No clicks present (Cardio), No murmurs present (Cardio) and No rub (Cardio) RATE: regular rate RHYTHM: regular rhythm GI: COMMON NORMALS: Normal to inspection, nondistended, normoactive bowel so unds present, Soft to palpation and non-tender AUSCULTATION: Yes normoactive bowel sounds PALPATION: Yes Soft to palpation RECTAL EXAM: deferred Extremity: COMMON NORMALS: normal to inspection, full ROM and capillary refill normal Neuro: COMMON NORMALS: patient oriented x3, moves all extremities, no focal motor deficits and no sensory deficits noted SENSORIUM/ORIENTATION: Yes orien michael to person, Yes oriented to place and Yes oriented to time Psych: COMMON NORMALS: mental status grossly normal and Normal thought process present THOUGHT PROCESS: Normal thought process present Skin: NARRATIVE SKIN EXAM: Hives noted to patient's chest and right breast. Course Vital Signs: Vital signs: Vital Signs Temperature 98.0 F 05/11/24 23:25 Pulse Rate 81 05/12/24 00:13 Respiratory Rate 17 05/12/24 00:06 Blood Pressure 130/83 05/11/24 23:25 Pulse Oximetry 96 05/12/24 00:06 Oxygen Delivery Me thod Room Air 05/12/24 00:06 MDM - Allergic Reaction Medical Decision Making Patient presents for acute swelling of throat hives, reports history of idiopathic hives. Her O2 saturation was normal on arrival and rest of her vitals unremarkable. Physical examination revealed her voice to be hoarse, however there is no active respiratory distress noted and there was improvement of the hives to her chest. She states that with these in the past she just re ceived steroids and a breathing treatment. After receiving breathing treatment as well as Pepcid and steroids here in the emergency department, she states she feels better. Prescription sent to her pharmacy. Chest x-ray did not demonstrate any acute abnormalities. Patient will be discharged home and return with any new or worsening. Care of patient discussed with supervising ED physician, Dr. Bernard, who agrees with disposition. XR interpretation done by ED provider, pending radiology final review Discharge Plan Discharge Patient Disposition: Home Clinical Impression: Allergic reaction Condition: Stable Prescriptions: New prednisone 20 mg tablet 60 mg PO ONCE 5 Days Qty: 15 0RF Pepcid 40 mg tablet 40 mg PO DAILY Qty: 30 0RF No Action cholecalciferol (vitamin D3) 10 mcg (400 unit) capsule 10 mcg PO DAILY ferrous sulfate 325 mg (65 mg iron) tablet 325 mg PO DAILY Qty: 30 3RF levothyroxine 75 mcg tablet 75 mcg PO DAILY Qty: 30 6RF Discharge Orders: Discharge ED (Routine); Ordered 05/12/24 Ordered By: Song Watts Referrals: Pablo Bledsoe MD [Primary Care Provider] - Discharge Diet: Usual diet Discharge Activity: Increase activity as tolerated Patient Instructions: Allergic Reaction Activity Restrictions/Additional Instructions: Steroids as prescribed. Pepcid as prescribed. Please follow-up with primary care and return with any new or worsening. Coding Level of Care Code ED Center Medical And Lab Director for Yassine Rogers
[2024-05-12] VITALS (7 sets, daily range): BP systolic 101–125; BP diastolic 62–80; PULSE 75–107; RESP 17; O2SAT 93–98
[2024-05-12] MEDS: dexamethasone 10 mg/mL INJ IVP (00:06)
[2024-05-12] MEDS: ipratropium-albuterol 3 mL Neb INHALATION (00:06)
[2024-05-12] MEDS: famotidine 20 mg/2 mL INJ 40 MG IVP (00:17)
[2024-05-12] MEDS: metoclopramide 5 mg/mL SDV 2 mL 10 MG IVP (00:29)
== END 2024-05-12 01:35 | disposition home or self-care (01) ==
PROVIDERS: Emergency Provider Physician Assistant; PCP Family Medicine
DX: T78.40XA Allergy, unspecified, initial encounter (principal); X58.XXXA Exposure to other specified factors, initial encounter
CPT/HCPCS: 71045; 94640; 96374; 96375; 99284; J1100; J2765; J3490

== ENCOUNTER → 2024-07-07 10:18 | Outpatient (BNVA) | payer MEDICAID, SELFPAY | PROVIDERS: PCP Family Medicine; Visit Provider Clinical Nurse Specialist Adult Health | DX: Z34.90 Encounter for supervision of normal pregnancy, unspecified, unspecified trimester (principal) | CPT/HCPCS: 81025 ==

== ENCOUNTER 2024-09-02 09:00 | Emergency (ER) | payer MEDICAID, SELFPAY ==
[2024-09-02 09:12] VITALS: BP 106/77; PULSE 71; RESP 16; TEMP 36.9; O2SAT 99; BMI 34.7
--- NOTE | 2024-09-02 09:40 | W.ED.ALLEREA ---
HPI - Allergic Reaction General: Chief complaint: Allergic Reaction Stated complaint: allergic reaction Time Seen by Provider: 09/02/24 09:01 Source: patient Mode of arrival: ambulatory Limitations: no limitations History of Present Illness: HPI narrative: 23-year-old female has had a history of she states idiopathic hives and allergic reaction in the past. States she had hives of the last 3 days but today this morning start having some increasing dyspnea and became concerned. States she allergic to Benadryl but has taken some Claritin at home with no relief she has not had to use steroids in the past but did not have any. Patient is currently resting comfortably in no respiratory distress denies any fever denies any worse improved factors Associated symptoms: Deny abdominal pain, nausea or vomiting Related Data Home Medications Medication Instructions Recorded Confirmed cholecalciferol (vitamin D3) 10 10 mcg PO DAILY 01/29/24 09/02/24 mcg (400 unit) capsule Previous Rx's Medication Instructions Recorded epinephrine 0.3 mg/0.3 mL 0.3 mg (0.3 mL) IM Q4H PRN 05/12/24 injection, auto-injector (EpiPen anaphylaxis #2 ea 2-Prasad) levothyroxine 88 mcg tablet 88 mcg PO DAILY #30 tabs 05/14/24 prednisone 20 mg tablet 20 mg PO DAILY 3 days #3 tabs 08/06/24 segesterone acet 0.15 mg-ethinyl 1 vag ring vaginal ONCE #1 ea 08/16/24 estradiol 0.013 mg/24 hr vaginal ring (Annovera) prednisone 50 mg tablet 50 mg PO DAILY #5 tabs 09/02/24 Allergies Allergy/AdvReac Type Severity Reaction Status Date / Time diphenhydramine Allergy ADR-Agitate Verified 07/20/24 14:00 [From Benadryl] d Review of Systems Const: Denies: fever(s), chills, body aches or change in appetite ENMT: Denies: throat pain or dental pain Card: Denies: chest pain Resp: Reports: dyspnea GI: Denies: abdominal pain, nausea, vomiting or diarrhea Musc: Denies: neck pain or back pain Skin/Breast: Denies: rash Neuro: Denies: headache(s) All/Imm: Reports: urticaria PFSH ED PFSH: Medical History Gestational diabetes Hypothyroid Surgical History H/O: History of placement of ear tubes Status post laparoscopic cholecystectomy (12/17/21) Status post delivery 03/12/2021--primary low transverse delivery for arrest of dilation [place] Falk [place] [facility] [place] Primary low transverse delivery with double layer closure, 2 cm inferior extension in the middle of the lower segment, hemorrhage due to atony with an EBL of 1200 but responded to uterotonic's - rLTCS - 09/08 - [place] Hx of colonoscopy (~2017) negative S/P tonsillectomy and adenoidectomy And tympanostomy at age 9 Status post surgery Ligament repair to right thumb in 2015 S/P laparoscopy 10/29/2018--left partial salpingectomy with removal of paratubal cyst [place] Dr. Falk [place] [facility] [place] On laparoscopy she was noted to have poor is left paratubal cyst. Attempt was made to resect this cyst without damaging the tube however bleeding was encountered and pathology like to be removed. Cytology done was benign. Pathology of the cyst showed benign simple paratubal cyst measuring 4 x 3 x 2 cm. Family History Family/Other Diabetes maternal aunt, maternal uncle, cousin --- All Type 1 Heart disease maternal great uncle, maternal great aunt Mother Diabetes Type2 Grandmother Thyroid disease maternal Denies family history of Colon cancer Ovarian cancer Hyperlipidemia Breast cancer Anesthesia complication Hypertension Uterine cancer Stroke Social History Smoking and tobacco/nicotine status: never used tobacco/nicotine Alcohol intake: current Alcohol intake frequency: few times a month Substance/Drug Use: never Physical Exam Const: COMMON NORMALS: no acute distress, patient oriented x3 and healthy appearing HENMT: COMMON NORMALS: normocephalic and atraumatic HEAD & SCALP: normocephalic and atraumatic THROAT: posterior oropharynx normal Eye: COMMON NORMALS: conjunctivae normal CONJUNCTIVA: Yes conjunctivae normal Neck/C-Spine: COMMON NORMALS: full ROM and supple Chest: COMMONS NORMALS: normal inspection of the chest and normal palpation of entire chest wall Resp: COMMON NORMALS: normal respiratory effort, No retractions, No use of accessory muscles and clear to auscultation bilaterally AUSCULTATION: clear to auscultation bilaterally Cardio: COMMON NORMALS: regular rate, regular rhythm and No murmurs present (Cardio) RATE: regular rate RHYTHM: regular rhythm Extremity: COMMON NORMALS: full ROM Neuro: COMMON NORMALS: patient oriented x3, moves all extremities and no focal motor deficits Psych: COMMON NORMALS: mental status grossly normal, Normal thought process present and cooperative THOUGHT PROCESS: Normal thought process present Skin: COMMON NORMALS: no wounds NARRATIVE SKIN EXAM: Mild urticaria to extremities Course Vital Signs: Vital signs: Vital Signs Temperature 98.4 F 09/02/24 09:12 Pulse Rate 71 09/02/24 09:12 Respiratory Rate 16 09/02/24 09:12 Blood Pressure 106/77 09/02/24 09:12 Pulse Oximetry 99 09/02/24 09:12 Oxygen Delivery Me thod Room Air 09/02/24 09:12 MDM - Allergic Reaction Medical Decision Making Patient presents here with urticaria rash is much improved here she feels improved she has no signs of airway involvement here we will write her prescription for steroids she is to follow-up with PCP return if worsening she understands agrees to plan Medical Records I reviewed the patient's medical records. No radiology studies performed this visit Discharge Plan Discharge Patient Disposition: Home Clinical Impression: Urticaria Condition: Stable Prescriptions: New prednisone 50 mg tablet 50 mg PO DAILY Qty: 5 0RF No Action cholecalciferol (vitamin D3) 10 mcg (400 unit) capsule 10 mcg PO DAILY epinephrine [EpiPen 2-Prasad] 0.3 mg/0.3 mL auto-injector 0.3 mg IM Q4H PRN (Reason: anaphylaxis) Qty: 2 0RF levothyroxine 88 mcg tablet 88 mcg PO DAILY Qty: 30 6RF prednisone 20 mg tablet 20 mg PO DAILY 3 Days Qty: 3 0RF Annovera 0.15-0.013 mg/24 hour ring 1 vag ring vaginal ONCE Qty: 1 0RF Rx Instructions: Place intravaginally, remove on 4th week of cycle to allow for period week. Wash and reinsert after period ends. Discharge Orders: Discharge ED (Routine); Ordered 09/02/24 Ordered By: Korby Myriam Referrals: Pablo Bledsoe MD [Primary Care Provider] - 4-7 days Discharge Diet: Advance as tolerated Discharge Activity: Resume usual activity Patient Instructions: Urticaria (ED) Coding Level of Care Code ED Volunteer Services Manager for Yassine Rogers
[2024-09-02] MEDS: methylPREDNISolone sod succ 125 mg/2 mL INJ IVP (09:52)
[2024-09-02] MEDS: famotidine 20 mg/2 mL INJ 40 MG IVP (09:53)
[2024-09-02 11:24] VITALS: BP 125/69; PULSE 82; O2SAT 98
== END 2024-09-02 11:25 | disposition home or self-care (01) ==
PROVIDERS: Emergency Provider Emergency Medicine; PCP Family Medicine
DX: L50.9 Urticaria, unspecified (principal)
CPT/HCPCS: 96374; 96375; 99284; J2919; J3490

== ENCOUNTER 2024-09-19 08:07 | Emergency (ER) | payer MEDICAID, SELFPAY ==
[2024-09-19 08:14] VITALS: BP 130/85; PULSE 98; RESP 20; TEMP 36.7; O2SAT 99
--- NOTE | 2024-09-19 08:18 | W.ED.ALLEREA ---
HPI - Allergic Reaction General: Chief complaint: Allergic Reaction Stated complaint: face is swollen Time Seen by Provider: 09/19/24 08:11 Source: patient Mode of arrival: ambulatory Limitations: no limitations History of Present Illness: HPI narrative: 23-year-old female states she woke up this morning at 730 and she felt like she had swelling in her lips she had had a history of allergic reactions in the past. States she did give herself a dose of her EpiPen she is feeling slightly anxious currently states her lip swelling is went down she denies any shortness of breath denies any rash. Associated symptoms: Deny abdominal pain, nausea or vomiting Related Data Home Medications Medication Instructions Recorded Confirmed cholecalciferol (vitamin D3) 10 10 mcg PO DAILY 01/29/24 09/02/24 mcg (400 unit) capsule Previous Rx's Medication Instructions Recorded epinephrine 0.3 mg/0.3 mL 0.3 mg (0.3 mL) IM Q4H PRN 05/12/24 injection, auto-injector (EpiPen anaphylaxis #2 ea 2-Prasad) levothyroxine 88 mcg tablet 88 mcg PO DAILY #30 tabs 05/14/24 prednisone 20 mg tablet 20 mg PO DAILY 3 days #3 tabs 08/06/24 segesterone acet 0.15 mg-ethinyl 1 vag ring vaginal ONCE #1 ea 08/16/24 estradiol 0.013 mg/24 hr vaginal ring (Annovera) prednisone 50 mg tablet 50 mg PO DAILY #5 tabs 09/02/24 Allergies Allergy/AdvReac Type Severity Reaction Status Date / Time diphenhydramine Allergy ADR-Agitate Verified 07/20/24 14:00 [From Benadryl] d Review of Systems Const: Denies: fever(s), chills, body aches or change in appetite Eyes: Denies: blurry vision or eye discomfort ENMT: Denies: throat pain or dental pain Card: Denies: chest pain Resp: Denies: dyspnea GI: Denies: abdominal pain, nausea, vomiting or diarrhea Musc: Denies: neck pain or back pain Skin/Breast: Denies: rash Neuro: Denies: headache(s) PFSH ED PFSH: Medical History Gestational diabetes Hypothyroid Surgical History H/O: History of placement of ear tubes Status post laparoscopic cholecystectomy (12/17/21) Status post delivery 03/12/2021--primary low transverse delivery for arrest of dilation performed [place] Dr. Falk [place] [facility] [place] Primary low transverse delivery with double layer closure, 2 cm inferior extension in the middle of the lower segment, hemorrhage due to atony with an EBL of 1200 but responded to uterotonic's - rLTCS - 09/08 - [place] Hx of colonoscopy (~2017) negative S/P tonsillectomy and adenoidectomy And tympanostomy at age 9 Status post surgery Ligament repair to right thumb in 2016 S/P laparoscopy 10/29/2018--left partial salpingectomy with removal of paratubal cyst by Dr. Falk at [facility] [place] On laparoscopy she was noted to have poor is left paratubal cyst. Attempt was made to resect this cyst without damaging the tube however bleeding was encountered and pathology like to be removed. Cytology done was benign. Pathology of the cyst showed benign simple paratubal cyst measuring 4 x 3 x 2 cm. Family History Family/Other Diabetes maternal aunt, maternal uncle, cousin --- All Type 1 Heart disease maternal great uncle, maternal great aunt Mother Diabetes Type2 Grandmother Thyroid disease maternal Denies family history of Colon cancer Ovarian cancer Hyperlipidemia Breast cancer Anesthesia complication Hypertension Uterine cancer Stroke Social History Smoking and tobacco/nicotine status: never used tobacco/nicotine Alcohol intake: current Alcohol intake frequency: few times a month Substance/Drug Use: never Physical Exam Const: COMMON NORMALS: no acute distress, patient oriented x3 and healthy appearing HENMT: COMMON NORMALS: normocephalic and atraumatic HEAD & SCALP: normocephalic and atraumatic MOUTH: Normal oral and palatal mucosa present, lip normal and tongue normal THROAT: posterior oropharynx normal Neck/C-Spine: COMMON NORMALS: full ROM and supple Chest: COMMONS NORMALS: normal inspection of the chest Resp: COMMON NORMALS: normal respiratory effort, No retractions, No use of accessory muscles and clear to auscultation bilaterally AUSCULTATION: clear to auscultation bilaterally Cardio: COMMON NORMALS: regular rate, regular rhythm and No murmurs present (Cardio) RATE: regular rate RHYTHM: regular rhythm Extremity: COMMON NORMALS: normal to inspection and full ROM Neuro: COMMON NORMALS: patient oriented x3, moves all extremities and no focal motor deficits Psych: COMMON NORMALS: mental status grossly normal, Normal thought process present and cooperative THOUGHT PROCESS: Normal thought process present Skin: COMMON NORMALS: no rashes or lesions noted and no wounds GENERAL SKIN EXAM: no rashes or lesions noted Course Vital Signs: Vital signs: Vital Signs Temperature 98.1 F 09/19/24 08:14 Pulse Rate 98 09/19/24 08:14 Respiratory Rate 20 H 09/19/24 08:14 Blood Pressure 130/85 09/19/24 08:14 Pulse Oximetry 99 09/19/24 08:14 Oxygen Delivery Me thod Room Air 09/19/24 08:14 MDM - Allergic Reaction Medical Decision Making Patient presents here with allergic reaction she has been well-appearing here she is in no distress she did give her self epinephrine at home. She is to follow-up with PCP return if worsening she understands agrees to plan. Medical Records I reviewed the patient's medical records. No radiology studies performed this visit Discharge Plan Discharge Patient Disposition: Home Clinical Impression: Allergic reaction Condition: Stable Prescriptions: No Action cholecalciferol (vitamin D3) 10 mcg (400 unit) capsule 10 mcg PO DAILY epinephrine [EpiPen 2-Prasad] 0.3 mg/0.3 mL auto-injector 0.3 mg IM Q4H PRN (Reason: anaphylaxis) Qty: 2 0RF levothyroxine 88 mcg tablet 88 mcg PO DAILY Qty: 30 6RF prednisone 20 mg tablet 20 mg PO DAILY 3 Days Qty: 3 0RF Annovera 0.15-0.013 mg/24 hour ring 1 vag ring vaginal ONCE Qty: 1 0RF Rx Instructions: Place intravaginally, remove on 4th week of cycle to allow for period week. Wash and reinsert after period ends. prednisone 50 mg tablet 50 mg PO DAILY Qty: 5 0RF Discharge Orders: Discharge ED (Routine); Ordered 09/19/24 Ordered By: Sneha Miguel Referrals: Pablo Bledsoe MD [Primary Care Provider] - Discharge Diet: Advance as tolerated Discharge Activity: Resume usual activity Patient Instructions: Allergic Reaction Coding Level of Care Code ED Submarine Diver for Yassine Rogers
[2024-09-19] MEDS: LORazepam 1 mg Tablet PO (08:36)
[2024-09-19 09:13] VITALS: BP 131/85; PULSE 71; O2SAT 99
== END 2024-09-19 09:14 | disposition home or self-care (01) ==
PROVIDERS: Emergency Provider Emergency Medicine; PCP Family Medicine
DX: T78.40XA Allergy, unspecified, initial encounter (principal); X58.XXXA Exposure to other specified factors, initial encounter
CPT/HCPCS: 99283

== ENCOUNTER 2024-09-25 17:38 | Emergency (ER) | payer MEDICAID, SELFPAY ==
[2024-09-25 17:56] VITALS: BP 127/85; PULSE 82; RESP 18; TEMP 36.5; O2SAT 96
--- NOTE | 2024-09-25 20:35 | XRR_ITS ---
PROCEDURE INFORMATION: Exam: XR Right Forearm Exam date and time: 09/25/2024 8:45 PM Age: 23 years old Clinical indication: Lower or forearm; Right; Patient HX: C/O RT forearm pain. No injury. TECHNIQUE: Imaging protocol: Radiologic exam of the right forearm. Views: 2 views. COMPARISON: CR (UP EX, ) 05/27/2020 8:12 PM FINDINGS: Bones/joints: Mild chronic spurring /tiny ossicle at the 1st CMC joint margins. No significant arthropathy. No fracture, significant malalignment, periosteal reaction or cortical thickening. Soft tissues: Normal. XR/XR forearm RT 2V [id number] IMPRESSION: No acute plain radiographic abnormality.
--- NOTE | 2024-09-25 20:35 | XRR_ITS ---
PROCEDURE INFORMATION: Exam: XR Right Humerus Exam date and time: 09/25/2024 8:45 PM Age: 23 years old Clinical indication: Right; Patient HX: C/O RT upper arm pain. No injury. TECHNIQUE: Imaging protocol: Radiologic exam of the right humerus. Views: 2 or more views. COMPARISON: No relevant prior studies available. FINDINGS: Bones/joints: No fracture, focal osseous abnormality, periosteal reaction or cortical thickening. No significant arthropathy in the visualized shoulder or elbow joints. Soft tissues: Normal. XR/[place] [id number] IMPRESSION: No significant plain radiographic abnormality.
[2024-09-25] MEDS: sodium chloride 0.9% 500 ML IV (20:48)
[2024-09-25] MEDS: LORazepam 2 mg/mL INJ 1 mL IVP (20:49)
[2024-09-25] MEDS: methylPREDNISolone sod succ 125 mg/2 mL INJ 80 MG IVP (20:51)
[2024-09-25] MEDS: hyDROXYzine 25 mg Capsule 50 MG PO (20:52)
[2024-09-25 20:54] LABS: Basophils % 0.1 %; Eosinophils # 0.1 10^3/uL (0.0-0.8); Eosinophils % 1.9 %; Hematocrit 36.6 % (36-47); Lymphocytes # 2.3 10^3/uL (0.8-4.8); Mean Corpuscular HGB Conc 34.2 g/dL (30-55); Mean Corpuscular Hemoglobin 28.9 pg (27-33); Mean Corpuscular Volume 84.7 fl (85-98); Mean Platelet Volume 11.2 fL (7.4-10.4); Monocytes # 0.5 10^3/uL (0.2-0.9); Monocytes % 6.5 %; Neutrophils # 4.26 10^3/uL (1.8-7.7); Neutrophils % 59.2 %; Nucleated Red Blood Cells % 0 %; Platelet Count 238 10^3/cmm (157-399); Red Blood Count 4.32 10^6/uL (3.85-5.65); Red Cell Distribution Width 12.5 % (12.1-15.1); White Blood Count 7.21 10^3/uL (3.29-11.43)
[2024-09-25 20:55] VITALS: BP 129/93; PULSE 83; RESP 18; O2SAT 99
[2024-09-25 21:10] LABS: Alanine Aminotransferase 13 U/L (0-33); Albumin Level 4.1 g/dL (3.5-5.2); Alkaline Phosphatase 70 U/L (35-105); Anion Gap 17.8 (5-19); Aspartate Amino Transferase 9 U/L (0-32); Blood Urea Nitrogen 10 mg/dL (6-20); Carbon Dioxide 19 mmol/L (22-29); Chloride 108 mmol/L (98-107); Creatinine Clr Calc Pharmacy 131.3352; Globulin 2.6 g/dL (1.3-4.6); Glomerular Filtration Rate 105.6 mL/min (90-130); Glucose 146 mg/dL (65-115); HCG, Serum Qual Negative (Negative); Magnesium 1.9 mg/dL (1.7-2.3); Osmolality Calculated 294 mOsm/kg (285-295); Phosphorus 2.8 mg/dL (2.5-4.5); Potassium 3.8 mmol/L (3.5-5.1); Sodium 141 mmol/L (136-145); Total Bilirubin 0.2 mg/dL (0.15-1.2); Total Protein 6.7 g/dL (6.6-8.7)
[2024-09-25 21:27] LABS: D Dimer 0.41 ug/mLFEU (0-0.59)
--- NOTE | 2024-09-25 21:33 | W.ED.EXTPRO ---
HPI - Extremity Problem General: Chief complaint: Extremity Injury, Upper Stated complaint: right arm swelling/pain Time Seen by Provider: 09/25/24 20:05 History of Present Illness: 23-year-old female. She presents with right upper extremity pain. She had been dealing with a wrist/thumb issue for a while and wearing a brace. She fell on it at the beginning of this week, injuring the arm she says. She had some pain, but yesterday, she had increased swelling to the upper extremity in general. Pain to the anterior arm/biceps area into the forearm and wrist. This was a more diffuse more intense pain and she had felt prior. She believes her arm is swollen. She sat out in the waiting room for a while this evening, and began to get short of breath. She believes her lips are swelling. She is having symptoms that are similar to her prior episodes of allergic reaction she says. She has been itchy in a couple of places. 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 Related Data Home Medications Medication Instructions Recorded Confirmed cholecalciferol (vitamin D3) 10 10 mcg PO DAILY 01/29/24 09/02/24 mcg (400 unit) capsule Previous Rx's Medication Instructions Recorded epinephrine 0.3 mg/0.3 mL 0.3 mg (0.3 mL) IM Q4H PRN 05/12/24 injection, auto-injector (EpiPen anaphylaxis #2 ea 2-Prasad) levothyroxine 88 mcg tablet 88 mcg PO DAILY #30 tabs 05/14/24 prednisone 20 mg tablet 20 mg PO DAILY 3 days #3 tabs 08/06/24 segesterone acet 0.15 mg-ethinyl 1 vag ring vaginal ONCE #1 ea 08/16/24 estradiol 0.013 mg/24 hr vaginal ring (Annovera) prednisone 50 mg tablet 50 mg PO DAILY #5 tabs 09/02/24 methylprednisolone 4 mg tablets in See Rx Instructions PO .COMPLEX 09/25/24 a dose pack (Medrol (Prasad)) #21 ea Allergies Allergy/AdvReac Type Severity Reaction Status Date / Time diphenhydramine Allergy ADR-Agitate Verified 09/25/24 18:01 [From Benadryl] d [facility] ED PFS: Medical History Gestational diabetes Hypothyroid Surgical History H/O: History of placement of ear tubes Status post laparoscopic cholecystectomy (12/17/21) Status post delivery 03/12/2021--primary low transverse delivery for arrest of dilation [place]. Falk [place] [facility] [place] Primary low transverse delivery with double layer closure, 2 cm inferior extension in the middle of the lower segment, hemorrhage due to atony with an EBL of 1200 but responded to uterotonic's - rLTCS - 09/08 - [place] Hx of colonoscopy (~2017) negative S/P tonsillectomy and adenoidectomy And tympanostomy at age 9 Status post surgery Ligament repair to right thumb in 2015 S/P laparoscopy 10/29/2018--left partial salpingectomy with removal of paratubal cyst by Dr. Falk [place] [facility] [place] On laparoscopy she was noted to have poor is left paratubal cyst. Attempt was made to resect this cyst without damaging the tube however bleeding was encountered and pathology like to be removed. Cytology done was benign. Pathology of the cyst showed benign simple paratubal cyst measuring 4 x 3 x 2 cm. Family History Family/Other Diabetes maternal aunt, maternal uncle, cousin --- All Type 1 Heart disease maternal great uncle, maternal great aunt Mother Diabetes Type2 Grandmother Thyroid disease maternal Denies family history of Colon cancer Ovarian cancer Hyperlipidemia Breast cancer Anesthesia complication Hypertension Uterine cancer Stroke Social History Smoking and tobacco/nicotine status: never used tobacco/nicotine Alcohol intake: current Alcohol intake frequency: few times a month Substance/Drug Use: never Female Reproductive History: Date of last menstrual period: 08/30/24 Physical Exam Const: COMMON NORMALS: no acute distress GENERAL APPEARANCE: cooperative and anxious; not ill appearing and not frail appearing HENMT: COMMON NORMALS: normocephalic, atraumatic and Normal external nose present HEAD & SCALP: normocephalic and atraumatic FACE & SINUS: normal facial exam and face symmetric NOSE: Normal external nose present Eye: COMMON NORMALS: Equal, round and reactive pupils present and EOMs intact bilaterally PUPIL: Yes Equal, round and reactive pupils present Neck/C-Spine: GENERAL: Yes trachea midline Chest: CHEST: Yes Symmetrical chest wall rise Resp: COMMON NORMALS: normal respiratory effort, No retractions, No use of accessory muscles and clear to auscultation bilaterally AUSCULTATION: clear to auscultation bilaterally Cardio: COMMON NORMALS: regular rate and regular rhythm RATE: regular rate RHYTHM: regular rhythm GI: COMMON NORMALS: Normal to inspection, nondistended, normoactive bowel sounds present Extremity: COMMON NORMALS: no pedal edema NARRATIVE EXTREMITY EXAM: Exam of the right upper extremity reveals diffuse tenderness. There is no cellulitis. There is no significant pitting edema or swelling. There is no deformity. Neuro: LEILANI COMA SCALE: document GCS findings [place] coma scale eye opening: Spontaneous Leilani coma scale verbal response: Orientated [place] coma scale motor response: Obey commands Leilani coma scale total score: 15 SENSORY EXAM: Yes extremities (intact) Psych: COMMON NORMALS: speech normal SPEECH: Yes normal speech Skin: COMMON NORMALS: no rashes or lesions noted GENERAL SKIN EXAM: no rashes or lesions noted Course Vital Signs: Vital signs: Vital Signs Temperature 97.7 F 09/25/24 17:56 Pulse Rate 121 H 09/25/24 23:09 Respiratory Rate 18 09/25/24 23:09 Blood Pressure 116/69 09/25/24 23:09 Pulse Oximetry 98 09/25/24 23:09 Oxygen Delivery Me thod Room Air 09/25/24 20:55 MDM - Extremity (Nontraumatic) Medical Decision Making Patient is anxious and mildly hyperventilating on exam. She has objective evidence, as her bicarbonate level is low. D-dimer is normal. hCG is negative. Other laboratory is not remarkable. X-rays of the arm and forearm are nonacute, she does however have significant first CMC arthritic change for her age. Lab Data 09/25/24 20:46 09/25/24 20:46 Radiology Impressions Forearm X-Ray 09/25/24 20:35 IMPRESSION: No acute plain radiographic abnormality. Humerus X-Ray 09/25/24 20:35 IMPRESSION: No significant plain radiographic abnormality. Laboratory Results WBC 7.21 10^3/uL (3.29-11.43) 09/25/24 20:46 RBC 4.32 10^6/uL (3.85-5.65) 09/25/24 20:46 Hgb 12.50 g/dL (11.27-16.99) 09/25/24 20:46 Hct 36.6 % (36-47) 09/25/24 20:46 MCV 84.7 fl (85-98) L 09/25/24 20:46 MCH 28.9 pg (27-33) 09/25/24 20:46 MCHC 34.2 g/dL (30-55) 09/25/24 20:46 RDW 12.5 % (12.1-15.1) 09/25/24 20:46 Plt Count 238 10^3/cmm (157-399) 09/25/24 20:46 MPV 11.2 fL (7.4-10.4) H 09/25/24 20:46 Neut % (Auto) 59.2 % 09/25/24 20:46 Lymph % (Auto) 32.0 % 09/25/24 20:46 [place] % (Auto) 6.5 % 09/25/24 20:46 Eos % (Auto) 1.9 % 09/25/24 20:46 Baso % (Auto) 0.1 % 09/25/24 20:46 Neut # (Auto) 4.26 10^3/uL (1.8-7.7) 09/25/24 20:46 Lymph # (Auto) 2.3 10^3/uL (0.8-4.8) 09/25/24 20:46 [place] # (Auto) 0.5 10^3/uL (0.2-0.9) 09/25/24 20:46 Eos # (Auto) 0.1 10^3/uL (0.0-0.8) 09/25/24 20:46 Baso # (Auto) 0.0 10^3/uL (0.0-0.1) 09/25/24 20:46 Nucleated RBC % (auto) 0 % 09/25/24 20:46 Nucleated RBCs # 0.0 /100WBC 09/25/24 20:46 D-Dimer 0.41 ug/mLFEU (0-0.59) 09/25/24 20:46 Sodium 141 mmol/L (136-145) 09/25/24 20:46 Potassium 3.8 mmol/L (3.5-5.1) 09/25/24 20:46 Chloride 108 mmol/L (98-107) H 09/25/24 20:46 Carbon Dioxide 19 mmol/L (22-29) L 09/25/24 20:46 Anion Gap 17.8 (5-19) 09/25/24 20:46 BUN 10 mg/dL (6-20) 09/25/24 20:46 Creatinine 0.7 mg/dL (0.5-0.9) 09/25/24 20:46 GFR Calculation 105.6 mL/min (90-130) 09/25/24 20:46 Glucose 146 mg/dL (65-115) H 09/25/24 20:46 Calculated Osmolality 294 mOsm/kg (285-295) 09/25/24 20:46 Calcium 9.0 mg/dL (8.5-10.5) 09/25/24 20:46 Phosphorus 2.8 mg/dL (2.5-4.5) 09/25/24 20:46 Magnesium 1.9 mg/dL (1.7-2.3) 09/25/24 20:46 Total Bilirubin 0.2 mg/dL (0.15-1.2) 09/25/24 20:46 AST 9 U/L (0-32) 09/25/24 20:46 ALT 13 U/L (0-33) 09/25/24 20:46 Alkaline Phosphatase 70 U/L (35-105) 09/25/24 20:46 Total Protein 6.7 g/dL (6.6-8.7) 09/25/24 20:46 Albumin 4.1 g/dL (3.5-5.2) 09/25/24 20:46 Globulin 2.6 g/dL (1.3-4.6) 09/25/24 20:46 HCG, Qual Negative (Negative) 09/25/24 20:46 XR interpretation done by ED provider, pending radiology final review Discharge Plan Discharge Patient Disposition: Home Clinical Impression: Arthrosis of first carpometacarpal joint, Allergic reaction Condition: Stable Prescriptions: New methylprednisolone [Medrol (Prasad)] 4 mg tablets,dose pack See Rx Instructions .ROUTE .COMPLEX Qty: 21 0RF Rx Instructions: orally per package directions No Action cholecalciferol (vitamin D3) 10 mcg (400 unit) capsule 10 mcg PO DAILY epinephrine [EpiPen 2-Prasad] 0.3 mg/0.3 mL auto-injector 0.3 mg IM Q4H PRN (Reason: anaphylaxis) Qty: 2 0RF levothyroxine 88 mcg tablet 88 mcg PO DAILY Qty: 30 6RF prednisone 20 mg tablet 20 mg PO DAILY 3 Days Qty: 3 0RF Annovera 0.15-0.013 mg/24 hour ring 1 vag ring vaginal ONCE Qty: 1 0RF Rx Instructions: Place intravaginally, remove on 4th week of cycle to allow for period week. Wash and reinsert after period ends. prednisone 50 mg tablet 50 mg PO DAILY Qty: 5 0RF Discharge Orders: Discharge ED (Routine); Ordered 09/25/24 Ordered By: Justin Bauer Referrals: Pablo Bledsoe MD [Primary Care Provider] - 1-3 days Patient Instructions: Arthritis (ED), Opioid Safety, Pain Management Activity Restrictions/Additional Instructions: Elevation to the arm may help. Ice will help as well. Medication as directed which will reduce swelling, and pain over time. Follow-up with your doctor. Coding Level of Care Code ED Liquid Waste Treatment Plant Operator for Yassine Rogers
[2024-09-25] MEDS: EPINEPHrine 1 mg/mL INJ 0.3 MG IM (21:38)
[2024-09-25] MEDS: ketorolac 30 mg/mL INJ IVP (21:40)
[2024-09-25] MEDS: ondansetron 2 mg/ML SDV 2 mL 4 MG IVP (21:42)
[2024-09-25 21:43] VITALS: RESP 21; O2SAT 99
[2024-09-25] MEDS: morphine 4 mg/mL SDV 1 mL IVP (21:43)
[2024-09-25 23:09] VITALS: BP 116/69; PULSE 121; RESP 18; O2SAT 98
== END 2024-09-25 23:10 | disposition home or self-care (01) ==
PROVIDERS: Emergency Provider Emergency Medicine; PCP Family Medicine
DX: M18.11 Unilateral primary osteoarthritis of first carpometacarpal joint, right hand (principal)
CPT/HCPCS: 36415; 73060; 73090; 80053; 83735; 84100; 84703; 85025; 85378; 96361; 96372; 96374; 96375; 99284; J0171; J1885; J2060; J2270; J2405; J2919; J7040

== ENCOUNTER → 2024-10-01 10:25 | Outpatient (BNVA) | payer MEDICAID, SELFPAY | PROVIDERS: PCP Family Medicine; Visit Provider Family Medicine | DX: E53.8 Deficiency of other specified B group vitamins (principal); E55.9 Vitamin D deficiency, unspecified; E03.9 Hypothyroidism, unspecified; Z51.81 Encounter for therapeutic drug level monitoring | CPT/HCPCS: 82306; 82607; 84439; 84443; 85025 ==

== ENCOUNTER 2024-10-11 18:22 | Emergency (ER) | payer MEDICAID, SELFPAY ==
[2024-10-11 18:27] VITALS: BP 147/81; PULSE 86; RESP 17; TEMP 37.2; O2SAT 99; BMI 35.6
[2024-10-11 19:05] VITALS: BP 121/76; PULSE 76; O2SAT 98
[2024-10-11] MEDS: dexamethasone 10 mg/mL INJ IM (19:41)
[2024-10-11] MEDS: methylPREDNISolone (DEPO) 80 MG/ML INJ 1 mL IM (19:42)
[2024-10-11 20:04] VITALS: BP 113/78; PULSE 83; O2SAT 97
--- NOTE | 2024-10-11 20:17 | ED_ITS ---
HPI - Allergic Reaction General: Chief complaint: Allergic Reaction Stated complaint: mouth face swelling allergic reaction Time Seen by Provider: 10/11/24 18:46 Source: patient Mode of arrival: ambulatory Limitations: no limitations History of Present Illness: HPI narrative: Patient is a 23-year-old female who presents to the emergency department complaining of swelling to her lips that began earlier today. She has multiple visits to the ER in the past for similar presentations, she states that every previous time she has had shortness of breath or feeling of throat closure and does not have this now. She states that she did not take her EpiPen but has in the past. 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 Primary presentation at this time was to make sure that the swelling was not too severe, is requesting steroid therapy as this normally has helped in the past. She takes Claritin for her allergy symptoms, states she is allergic to Benadryl. She also took Zyrtec and Ange prior to presentation to the ER. No other symptoms other than the swelling to her upper lip at this time. MD complaint: facial swelling Onset (ago): hour(s) Exposure: unknown Known history of allergy to: Idiopathic hives Associated symptoms: Reports no associated symptoms; Deny abdominal pain, hoarseness, nausea or vomiting Severity: mild Treatment prior to arrival: other (Claritin, Zyrtec, Ange) Previous Allergic Reaction History: prior ED visit(s) Related Data Previous Rx's Medication Instructions Recorded levothyroxine 88 mcg tablet 88 mcg PO DAILY #30 tabs 05/14/24 prednisone 20 mg tablet 20 mg PO DAILY 3 days #3 tabs 08/06/24 segesterone acet 0.15 mg-ethinyl 1 vag ring vaginal ONCE #1 ea 08/16/24 estradiol 0.013 mg/24 hr vaginal ring ([place]) prednisone 50 mg tablet 50 mg PO DAILY #5 tabs 09/02/24 methylprednisolone 4 mg tablets in See Rx Instructions PO .COMPLEX 09/25/24 a dose pack (Medrol (Prasad)) #21 ea citalopram 10 mg tablet 10 mg PO DAILY #30 tabs 10/01/24 epinephrine 0.3 mg/0.3 mL 0.3 mg (0.3 mL) IM Q4H PRN 10/01/24 injection, auto-injector (EpiPen anaphylaxis #2 ea 2-Prasad) cholecalciferol (vitamin D3) 50 50 mcg PO DAILY #30 caps 10/05/24 mcg (2,000 unit) capsule cyanocobalamin (vitamin B-12) 500 500 mcg PO DAILY #30 tabs 10/05/24 mcg tablet (Vitamin B-12) ferrous sulfate 325 mg (65 mg 325 mg PO DAILY #30 tabs 10/05/24 iron) tablet Allergies Allergy/AdvReac Type Severity Reaction Status Date / Time diphenhydramine Allergy ADR-Agitate Verified 09/25/24 18:01 [From Benadryl] d Review of Systems General: Reports: 10 or more systems reviewed and unremarkable except in HPI and below Const: Denies: fever(s) or chills ENMT: Reports: swelling of lips/tongue; Denies: throat pain, uvular edema, odynophagia or hoarseness Card: Denies: chest pain Resp: Denies: dyspnea or wheezing GI: Denies: abdominal pain, nausea, vomiting or diarrhea Musc: Denies: extremity pain or joint pain Skin/Breast: Denies: rash, skin pain, skin tenderness or new lesions Neuro: Denies: headache(s) PFSH ED PFSH: Medical History Gestational diabetes Hypothyroid Surgical History H/O: History of placement of ear tubes Status post laparoscopic cholecystectomy (12/17/21) Status post delivery 03/12/2021--primary low transverse delivery for arrest of dilation performed by Dr. Falk at [facility] [place]. Primary low transverse delivery with double layer closure, 2 cm inferior extension in the middle of the lower segment, hemorrhage due to atony with an EBL of 1200 but responded to uterotonic's - rLTCS - 09/08 - [place] Hx of colonoscopy (~2017) negative S/P tonsillectomy and adenoidectomy And tympanostomy at age 9 Status post surgery Ligament repair to right thumb in 2016 S/P laparoscopy 10/29/2018--left partial salpingectomy with removal of paratubal cyst by Dr. Falk at [facility] [place]. On laparoscopy she was noted to have poor is left paratubal cyst. Attempt was made to resect this cyst without damaging the tube however bleeding was encountered and pathology like to be removed. Cytology done was benign. Pathology of the cyst showed benign simple paratubal cyst m easuring 4 x 3 x 2 cm. Family History Family/Other Diabetes maternal aunt, maternal uncle, cousin --- All Type 1 Heart disease maternal great uncle, maternal great aunt Mother Diabetes Type2 Grandmother Thyroid disease maternal Denies family history of Colon cancer Ovarian cancer Hyperlipidemia Breast cancer Anesthesia complication Hypertension Uterine cancer Stroke Social History Smoking and tobacco/nicotine status: never used tobacco/nicotine Alcohol intake: current Alcohol intake frequency: few times a month Substance/Drug Use: never Physical Exam Const: COMMON NORMALS: no acute distress, average body habitus, patient oriented x3, no limitations, healthy appearing, alert and well nourished HENMT: COMMON NORMALS: normocephalic and atraumatic HEAD & SCALP: normocephalic and atraumatic MOUTH: Normal oral and palatal mucosa present, tongue normal and Normal salivary glands and ducts present THROAT: posterior oropharynx normal and uvula midline; no uvular edema OTHER: Mild swelling to the left upper lip. There is no tongue swelling. Neck/C-Spine: COMMON NORMALS: full ROM, no lymphadenopathy, supple and no meningeal signs Resp: COMMON NORMALS: normal respiratory effort, No use of accessory muscles and clear to auscultation bilaterally AUSCULTATION: clear to auscultation bilaterally Cardio: COMMON NORMALS: regular rate and regular rhythm RATE: regular rate RHYTHM: regular rhythm Extremity: COMMON NORMALS: full ROM and capillary refill normal Neuro: COMMON NORMALS: patient oriented x3 SENSORIUM/ORIENTATION: Yes alert MENINGEAL SIGNS: Yes no meningeal signs Skin: COMMON NORMALS: no rashes or lesions noted, no wounds and turgor normal GENERAL SKIN EXAM: no rashes or lesions noted and turgor normal Course Vital Signs: Vital signs: Vital Signs Temperature 98.9 F 10/11/24 18:27 Pulse Rate 83 10/11/24 20:04 Respiratory Rate 17 10/11/24 18:27 Blood Pressure 113/78 10/11/24 20:04 Pulse Oximetry 97 10/11/24 20:04 Oxygen Delivery Me thod Room Air 10/11/24 18:27 MDM - Allergic Reaction Medical Decision Making Patient has multiple prior ED visits for similar presentation, this is reportedly the most milder presentations as she is not having any breathing difficulties. In the past she has required breathing treatments, none required at this time. She will be given shot of Decadron as well as Depo-Medrol, and she currently is attempting to get in with an mountain services manager to see why she continues to have idiopathic allergic reactions. Her vitals have been stable throughout ED course, no respiratory distress noted. On physical examination there was only some swelling to the lip noted, no oropharyngeal swelling otherwise. She is comfortable with discharge home and return precautions given. No radiology studies performed this visit Discharge Plan Discharge Patient Disposition: Home Clinical Impression: Allergic reaction Condition: Stable Prescriptions: No Action citalopram 10 mg tablet 10 mg PO DAILY Qty: 30 6RF epinephrine [EpiPen 2-Prasad] 0.3 mg/0.3 mL auto-injector 0.3 mg IM Q4H PRN (Reason: anaphylaxis) Qty: 2 1RF levothyroxine 88 mcg tablet 88 mcg PO DAILY Qty: 30 6RF prednisone 20 mg tablet 20 mg PO DAILY 3 Days Qty: 3 0RF Annovera 0.15-0.013 mg/24 hour ring 1 vag ring vaginal ONCE Qty: 1 0RF Rx Instructions: Place intravaginally, remove on 4th week of cycle to allow for period week. Wash and reinsert after period ends. cyanocobalamin (vitamin B-12) [Vitamin B-12] 500 mcg tablet 500 mcg PO DAILY Qty: 30 6RF ferrous sulfate 325 mg (65 mg iron) tablet 325 mg PO DAILY Qty: 30 3RF cholecalciferol (vitamin D3) 50 mcg (2,000 unit) capsule 50 mcg PO DAILY Qty: 30 6RF methylprednisolone [Medrol (Prasad)] 4 mg tablets,dose pack See Rx Instructions .ROUTE .COMPLEX Qty: 21 0RF Rx Instructions: orally per package directions prednisone 50 mg tablet 50 mg PO DAILY Qty: 5 0RF Discharge Orders: Discharge ED (Routine); Ordered 10/11/24 Ordered By: Song Watts Referrals: Pablo Bledsoe MD [Primary Care Provider] - Activity Restrictions/Additional Instructions: Close follow-up with primary care and referral to mountain services manager as discussed. Please return if you develop any shortness of breath, worsening of swelling with your lips or tongue, or other concerning signs or symptoms. Continue taking home medications. Coding Level of Care Code ED Adjutant General for Yassine Rogers
== END 2024-10-11 20:07 | disposition home or self-care (01) ==
PROVIDERS: Emergency Provider Physician Assistant; PCP Family Medicine
DX: T78.40XA Allergy, unspecified, initial encounter (principal); X58.XXXA Exposure to other specified factors, initial encounter
CPT/HCPCS: 96372; 99284; J1010; J1100

== ENCOUNTER 2024-10-21 15:03 | Outpatient (CLI) | payer MEDICAID, SELFPAY ==
[2024-10-25 14:54] LABS: Anti-Nuclear Antibody Screen NEGATIVE (NEGATIVE)
== END 2024-10-21 15:04 | disposition home or self-care (01) ==
LOC: LAB 15:05
PROVIDERS: PCP Family Medicine; Visit Provider Family Medicine
DX: M25.50 Pain in unspecified joint (principal); Z30.430 Encounter for insertion of intrauterine contraceptive device
CPT/HCPCS: 36415; 81025; 86038

== ENCOUNTER → 2024-11-25 10:04 | Outpatient (BNVA) | payer MEDICAID, SELFPAY | PROVIDERS: PCP Family Medicine; Visit Provider Family Medicine | DX: R51.9 Headache, unspecified (principal); R74.01 Elevation of levels of liver transaminase levels; E03.9 Hypothyroidism, unspecified; R53.83 Other fatigue | CPT/HCPCS: 84443; 84481; 85651; 86003; 86008; 86038; 86611 ==

== ENCOUNTER 2024-12-21 13:10 | Oncology outpatient (recurring) (ONCR) | payer MEDICAID, SELFPAY ==
[2024-12-21 14:24] LABS: Basophils % 0.1 %; Eosinophils # 0.1 10^3/uL (0.0-0.8); Eosinophils % 1.4 %; Hematocrit 41.1 % (36-47); Lymphocytes % 25.3 %; Mean Corpuscular HGB Conc 34.8 g/dL (30-55); Mean Corpuscular Hemoglobin 29.8 pg (27-33); Mean Corpuscular Volume 85.6 fl (85-98); Mean Platelet Volume 11.1 fL (7.4-10.4); Monocytes # 0.6 10^3/uL (0.2-0.9); Monocytes % 7.2 %; Neutrophils # 5.12 10^3/uL (1.8-7.7); Neutrophils % 65.6 %; Nucleated Red Blood Cells % 0 %; Platelet Count 264 10^3/cmm (157-399); Red Cell Distribution Width 12.1 % (12.1-15.1)
[2024-12-21 14:42] LABS: Alanine Aminotransferase 62 U/L (0-33); Albumin Level 4.9 g/dL (3.5-5.2); Alkaline Phosphatase 91 U/L (35-105); Anion Gap 15.4 (5-19); Aspartate Amino Transferase 35 U/L (0-32); Blood Urea Nitrogen 13 mg/dL (6-20); Calcium 9.9 mg/dL (8.5-10.5); Carbon Dioxide 25 mmol/L (22-29); Chloride 102 mmol/L (98-107); Creatinine Clr Calc Pharmacy 115.2161; Glomerular Filtration Rate 89.7 mL/min (90-130); Glucose 113 mg/dL (65-115); Osmolality Calculated 287 mOsm/kg (285-295); Potassium 4.4 mmol/L (3.5-5.1); Sodium 138 mmol/L (136-145); Total Bilirubin 0.7 mg/dL (0.15-1.2); Total Protein 7.9 g/dL (6.6-8.7)
[2024-12-21 14:48] LABS: Fibrinogen 406 mg/dL (174-498)
[2024-12-27 15:09] LABS: Factor Viii, Activity 72 % normal (50-180); Partial Thromboplastin Time, A 29 sec (23-32)
[2024-12-28 14:10] LABS: Von Willebrand Factor (Rcf) 53 % normal (42-200); Von Willebrand Factor Ag 62 % (50-217)
== END 2025-01-14 23:59 | disposition home or self-care (01) ==
LOC: ONCMED 13:11
PROVIDERS: PCP Family Medicine; Visit Provider Internal Medicine Medical Oncology
DX: D69.9 Hemorrhagic condition, unspecified (principal)
CPT/HCPCS: 36415; 80053; 85025; 85240; 85245; 85246; 85384; 85610; 85730

== ENCOUNTER 2025-01-12 12:27 | Emergency (ER) | payer MEDICAID, SELFPAY ==
[2025-01-12 12:31] VITALS: BP 120/74; PULSE 85; RESP 17; TEMP 37; O2SAT 98; BMI 36.6
[2025-01-12 13:28] LABS: Basophils % 0.3 %; Eosinophils # 0.1 10^3/uL (0.0-0.8); Eosinophils % 1.6 %; Hematocrit 40.1 % (36-47); Lymphocytes % 26.5 %; Mean Corpuscular HGB Conc 33.4 g/dL (30-55); Mean Corpuscular Hemoglobin 28.7 pg (27-33); Mean Corpuscular Volume 85.9 fl (85-98); Mean Platelet Volume 11.3 fL (7.4-10.4); Monocytes # 0.5 10^3/uL (0.2-0.9); Monocytes % 6.3 %; Neutrophils # 4.93 10^3/uL (1.8-7.7); Nucleated Red Blood Cells % 0 %; Platelet Count 245 10^3/cmm (157-399); Red Blood Count 4.67 10^6/uL (3.85-5.65); Red Cell Distribution Width 12.3 % (12.1-15.1); White Blood Count 7.58 10^3/uL (3.29-11.43)
--- NOTE | 2025-01-12 13:44 | CTR_ITS ---
PROCEDURE INFORMATION: Exam: CT Abdomen And Pelvis With Contrast Exam date and time: 01/12/2025 3:20 PM Age: 24 years old Clinical indication: Abdominal pain; Localized; Right lower quadrant (rlq); Additional info: Periumbilical abd pain, rlq pain TECHNIQUE: Imaging protocol: Computed tomography of the abdomen and pelvis with contrast. Radiation optimization: All CT scans at this facility use at least one of these dose optimization techniques: automated exposure control; mA and/or kV adjustment per patient size (includes targeted exams where dose is matched to clinical indication); or iterative reconstruction. Contrast material: OMNI 350; Contrast volume: 100 ml; Contrast route: INTRAVENOUS (IV); COMPARISON: CT abdomen pelvis w con* [id number] 04/26/2024 12:12 AM RADIATION DOSE METRICS: Total DLP (mGy-cm): 934.13 FINDINGS: Lungs: Subsegmental bibasilar atelectasis. 3.5 cm right basilar pulmonary cyst. The visualized lung bases are otherwise grossly clear. Diaphragm: No evidence of diaphragmatic defect. Liver: Hepatic steatosis. No evidence of focal hepatic lesion. Gallbladder and biliary ducts: Status post cholecystectomy. No evidence of intrahepatic or extrahepatic biliary dilatation. Pancreas: Unremarkable. Spleen: Unremarkable. Adrenal glands: Unremarkable. Kidneys and ureters: No renal parenchymal abnormality. No hydronephrosis or ureteral stone. Stomach and bowel: No evidence of bowel obstruction or perienteric inflammatory changes. Appendix: Normal appendix. Intraperitoneal space: No evidence of free air or fluid collection. Vasculature: No aneurysmal dilatation or dissection of the abdominal aorta. The celiac trunk, SMA and DONI are grossly patent. No evidence of IVC thrombus. The portal vein, SMV and splenic veins are grossly patent. Lymph nodes: No adenopathy. Urinary bladder: Grossly unremarkable. Reproductive: IUD in place in expected position. 1.5 cm left-sided corpus luteum cyst. Otherwise grossly unremarkable. Bones/joints: No evidence of acute fracture or aggressive osseous lesion. L5-S1 disc bulge with a right paramedian protrusion, possibly contacting the descending right S1 nerve root.Consider correlation with follow-up outpatient MRI if there is concern for neural impingement. Soft tissues: No evidence of fluid collection or hematoma in the superficial soft tissues. CT/CT abdomen pelvis w con* [id number] IMPRESSION: 1. No evidence of acute abnormality in the abdomen or pelvis.
--- NOTE | 2025-01-12 13:45 | ED_ITS ---
HPI - Abdominal Pain 2 General: Chief Complaint: Abdominal Pain Stated Complaint: abd pain (sent by summer) Time Seen by Provider: 01/12/25 13:15 Source: patient Mode of arrival: ambulatory Limitations: no limitations History of Present Illness: Patient is a 24-year-old female who presents the emergency department complaining of sudden lower abdominal pain beginning at 1000 this morning. She was seen at Dr. Bledsoe's office who subsequently referred her to the emergency department to rule out an acute abdomen. Patient is noting that she has no appetite and is nauseous, she still has her appendix but has a history of cholecystectomy as well as left partial salpingectomy. Also has a history of 2 C-sections. Patient also states she had an IUD placed in October and since then has been constantly bleeding up until the other day when she noticed that this stopped. Denying any current bleeding or discharge. Denies possibility of . She states that the pain mostly is felt periumbilically and slightly lower than this, but she also has feelings of pain to her right lower quadrant. She states that she is concerned of her appendix. Her vitals are within normal limits at this time. Further denying any fever, shortness of breath, diarrhea or constipation, or vomiting. No trauma reported. No urinary symptoms. MD elicited complaint: abdominal pain Onset (ago): hour(s) Pain Consistency: constant Location: Periumbilical, RLQ and Suprapubic Severity: moderate Quality: stabbing Exacerbating factors: nothing Relieving factors: nothing Associated Symptoms: Reports nausea; Denies bloating, change in stool character, chills, constipation, diarrhea, dysuria, fever(s), hematochezia and vomiting Related Data Home Medications ?Medication ?Instructions ?Recorded ?Confirmed etonogestrel 0.12 mg-ethinyl 1 vag ring vaginal Q21D 0 12/21/24 01/12/25 estradiol 0.015 mg/24 hr vaginal ring famotidine 20 mg tablet 20 mg PO BID 12/21/24 levocetirizine 5 mg tablet 5 mg PO DAILY 12/21/2412/19 Previous Rx's ?Medication ?Instructions ?Recorded citalopram 10 mg tablet 10 mg PO DAILY #30 tabs 09/17 04/09 epinephrine 0.3 mg/0.3 mL 0.3 mg (0.3 mL) IM Q4H PRN 1 12/01/23 injection, auto-injector (EpiPen anaphylaxis #2 ea 2-Prasad) cholecalciferol (vitamin D3) 50 50 mcg PO DAILY #30 ca ps 10/05/24 mcg (2,000 unit) capsule cyanocobalamin (vitamin B-12) 500 500 mcg PO DAILY #30 tabs 10/05/24 mcg tablet (Vitamin B-12) levothyroxine 88 mcg tablet 88 mcg PO DAILY #30 tabs 0 11/25/24 ferrous sulfate 325 mg (65 mg 325 mg PO DAILY #30 tabs 12/29/24 iron) tablet Allergies Allergy/AdvReac Type Severity Reaction Status Date / Time diphenhydramine (From AdvReac ADR-Agitate Verified 01/12/25 12:33 Benadryl) d Review of Systems 2 General: Reports: 10 or more systems reviewed and unremarkable except in HPI and below Const: Reports: change in appetite; Denies: fever(s), chills, change in weight or diaphoresis ENMT: Denies: throat pain or hoarseness Card: Denies: chest pain, palpitations or lightheadedness Resp: Denies: dyspnea, productive cough or wheezing GI: Reports: abdominal pain and nausea; Denies: vomiting, diarrhea, constipation, bloating, change in stool character or hematochezia : Denies: flank pain, difficulty voiding, dysuria, urinary frequency or urinary urgency Musc: Denies: neck pain or back pain Skin/Breast: Denies: rash or new lesions Neuro: Denies: headache(s) or dizziness PFSH ED 2 PFSH: Medical History Gestational diabetes Hypothyroid Surgical History H/O: History of placement of ear tubes Status post laparoscopic cholecystectomy (12/17/21) Status post delivery 03/12/2021--primary low transverse delivery for arrest of dilation performed by Dr. Falk at [facility] [place]. Primary low transverse delivery with double layer closure, 2 cm inferior extension in the middle of the lower segment, hemorrhage due to atony with an EBL of 1200 but responded to uterotonic's - rLTCS - 09/08 - [place] Hx of colonoscopy (~2017) negative S/P tonsillectomy and adenoidectomy And tympanostomy at age 9 Status post surgery Ligament repair to right thumb in 2016 S/P laparoscopy 10/29/2018--left partial salpingectomy with removal of paratubal cyst by Dr. Falk at [facility] [place]. On laparoscopy she was noted to have poor is left paratubal cyst. Attempt was made to resect this cyst without damaging the tube however bleeding was encountered and pathology like to be removed. Cytology done was benign. Pathology of the cyst showed benign simple paratubal cyst measuring 4 x 3 x 2 cm. Family History Family/Other Diabetes maternal aunt, maternal uncle, cousin --- All Type 1 Heart disease maternal great uncle, maternal great aunt Mother Diabetes Type2 Grandmother Thyroid disease maternal Denies family history of Colon cancer Ovarian cancer Hyperlipidemia Breast cancer Anesthesia complication Hypertension Uterine cancer Stroke Social History Smoking and tobacco/nicotine status: never used tobacco/nicotine Alcohol intake: current Alcohol intake frequency: few times a month Substance/Drug Use: never Physical Exam 2 Const: COMMON NORMALS: no acute distress, patient oriented x3, no limitations, alert and well nourished GENERAL APPEARANCE: cooperative HENMT: COMMON NORMALS: normocephalic, atraumatic and moist oral mucous membranes HEAD & SCALP: normocephalic and atraumatic Eye: COMMON NORMALS: EOMs intact bilaterally and conjunctivae normal C ONJUNCTIVA: Yes conjunctivae normal Neck/C-Spine: COMMON NORMALS: full ROM and no meningeal signs Resp: COMMON NORMALS: normal respiratory effort, No retractions, No use of accessory muscles and clear to auscultation bilaterally AUSCULTATION: clear to auscultation bilaterally Cardio: COMMON NORMALS: regular rate, regular rhythm, S1 normal heart sound present and S2 normal heart sound present RATE: regular rate RHYTHM: r egular rhythm HEART SOUNDS: S1 normal heart sound present and S2 normal heart sound present GI: COMMON NORMALS: Normal to inspection, nondistended, normoactive bowel sounds present, Soft to palpation, No hepatosplenomegaly present and no masses INSPECTION: Yes central obesity PALPATION: Yes Soft to palpation and Yes No hepatosplenomegaly present OTHER: She has tenderness to the lower abdomen, seems to be worse to the suprapubic region. Negative [place]'s point tenderness. Negative Rovsing sign. : COMMON NORMALS: Yes no CVA tenderness BLADDER/KIDNEY EXAM: Yes no CVA tenderness Back/Pelvis: COMMON NORMALS: no CVA tenderness Extremity: COMMON NORMALS: normal to inspection and full ROM Neuro: COMMON NORMALS: patient oriented x3, moves all extremities, no focal motor deficits and no sensory deficits noted SENSORIUM/ORIENTATION: Yes alert MENINGEAL SIGNS: Yes no meningeal signs Skin: COMMON NORMALS: no rashes or lesions noted GENERAL SKIN EXAM: no rashes or lesions noted Course 2 Vital Signs: Vital signs: Vital Signs Temperature 98.6 F 01/12/25 12:31 Pulse Rate 85 01/12/25 12:31 Respiratory Rate 17 01/12/25 12:31 Blood Pressure 120/74 01/12/25 12:31 Pulse Oximetry 98 01/12/25 12:31 Oxygen Delivery Me thod Room Air 01/12/25 12:31 MDM - Abdominal Pain Medical Decision Making Patient presented with abdominal pain, was referred for primary care for evaluation of an acute abdomen. Tender to the lower abdomen, I did not suspect any peritoneal signs and negative testing for appendicitis based off physical exam. Her vitals have been within normal limits. Her blood work did not demonstrate any abnormalities, her white count was normal. Urinalysis was clean of any infection. She also wanted evaluation of her IUD, and on abdomen pelvis CT this did show that this was in correct position. Additionally there were no acute abnormalities noted. Rechecked after being given Toradol, states that she feels essentially the same. She does have a history of ovarian cysts, likely that 1 of these could have ruptured and likely that this could be musculoskeletal abdominal pain. Regardless nothing acute and will have her follow back up with primary care for further outpatient evaluation. She is comfortable with this plan, she is given return precautions and verbalized understanding. Lab Data 01/12/25 13:18 01/12/25 13:18 Labs/Radiology: Radiology Impressions Abdomen/Pelvis CT 01/12/25 13:44 IMPRESSION: 1. No evidence of acute abnormality in the abdomen or pelvis. Laboratory Results WBC 7.58 10^3/uL (3.29-11.43) 01/12/25 13:18 RBC 4.67 10^6/uL (3.85-5.65) 01/12/25 13:18 Hgb 13.40 g/dL (11.27-16.99) 01/12/25 13:18 Hct 40.1 % (36-47) 01/12/25 13:18 MCV 85.9 fl (85-98) 01/12/25 13:18 MCH 28.7 pg (27-33) 01/12/25 13:18 MCHC 33.4 g/dL (30-55) 01/12/25 13:18 RDW 12.3 % (12.1-15.1) 01/12/25 13:18 Plt Count 245 10^3/cmm (157-399) 01/12/25 13:18 MPV 11.3 fL (7.4-10.4) H 01/12/25 13:18 Neut % (Auto) 65.0 % 01/12/25 13:18 Lymph % (Auto) 26.5 % 01/12/25 13:18 [place] % (Auto) 6.3 % 01/12/25 13:18 Eos % (Auto) 1.6 % 01/12/25 13:18 Baso % (Auto) 0.3 % 01/12/25 13:18 Neut # (Auto) 4.93 10^3/uL (1.8-7.7) 01/12/25 13:18 Lymph # (Auto) 2.0 10^3/uL (0.8-4.8) 01/12/25 13:18 [place] # (Auto) 0.5 10^3/uL (0.2-0.9) 01/12/25 13:18 Eos # (Auto) 0.1 10^3/uL (0.0-0.8) 01/12/25 13:18 Baso # (Auto) 0.0 10^3/uL (0.0-0.1) 01/12/25 13:18 Nucleated RBC % (auto) 0 % 01/12/25 13:18 Nucleated RBCs # 0.0 /100WBC 01/12/25 13:18 Sodium 139 mmol/L (136-145) 01/12/25 13:18 Potassium 4.1 mmol/L (3.5-5.1) 01/12/25 13:18 Chloride 105 mmol/L (98-107) 01/12/25 13:18 Carbon Dioxide 23 mmol/L (22-29) 01/12/25 13:18 Anion Gap 15.1 (5-19) 01/12/25 13:18 BUN 9 mg/dL (6-20) 01/12/25 13:18 Creatinine 0.8 mg/dL (0.5-0.9) 01/12/25 13:18 GFR Calculation 89.7 mL/min (90-130) L 01/12/25 13:18 Glucose 106 mg/dL (65-115) 01/12/25 13:18 Calculated Osmolality 287 mOsm/kg (285-295) 01/12/25 13:18 Calcium 9.2 mg/dL (8.5-10.5) 01/12/25 13:18 Total Bilirubin 0.7 mg/dL (0.15-1.2) 01/12/25 13:18 AST 28 U/L (0-32) 01/12/25 13:18 ALT 53 U/L (0-33) H 01/12/25 13:18 Alkaline Phosphatase 95 U/L (35-105) 01/12/25 13:18 Total Protein 7.4 g/dL (6.6-8.7) 01/12/25 13:18 Albumin 4.4 g/dL (3.5-5.2) 01/12/25 13:18 Globulin 3.0 g/dL (1.3-4.6) 01/12/25 13:18 Lipase 23 U/L (13-60) 01/12/25 13:18 HCG, Qual Negative (Negative) 01/12/25 13:18 Urine Color Yellow (Yellow) 01/12/25 13:10 Urine Appearance Clear (CLEAR) 01/12/25 13:10 Urine pH 5.5 (5-7) 01/12/25 13:10 Ur Specific [place] 1.015 (1.005-1.030) 01/12/25 13:10 Urine Protein Negative (Negative) 01/12/25 13:10 Urine Glucose (UA) Negative (Normal) 01/12/25 13:10 Urine Ketones Negative (Negative) 01/12/25 13:10 Urine Blood Negative (Negative) 01/12/25 13:10 Urine Nitrate Negative (Negative) 01/12/25 13:10 Urine Bilirubin Negative (Negative) 01/12/25 13:10 Urine Urobilinogen 1.0 mg/dL (Negative) 01/12/25 13:10 Ur Leukocyte Esterase Negative (Negative) 01/12/25 13:10 Amorphous Sediment Not Reportable 01/12/25 13:10 All radiology interpretation(s) finalized by discharge Discharge Plan Discharge Patient Disposition: Home Clinical Impression: Lower abdominal pain Condition: Stable Prescriptions: No Action citalopram 10 mg tablet 10 mg PO DAILY Qty: 30 6RF epinephrine [EpiPen 2-Prasad] 0.3 mg/0.3 mL auto-injector 0.3 mg IM Q4H PRN (Reason: anaphylaxis) Qty: 2 1RF levocetirizine 5 mg tablet 5 mg PO DAILY famotidine 20 mg tablet 20 mg PO BID etonogestrel-ethinyl estradiol 0.12-0.015 mg/24 hr ring 1 vag ring vaginal Q21D cyanocobalamin (vitamin B-12) [Vitamin B-12] 500 mcg tablet 500 mcg PO DAILY Qty: 30 6RF cholecalciferol (vitamin D3) 50 mcg (2,000 unit) capsule 50 mcg PO DAILY Qty: 30 6RF levothyroxine 88 mcg tablet 88 mcg PO DAILY Qty: 30 6RF ferrous sulfate 325 mg (65 mg iron) tablet 325 mg PO DAILY Qty: 30 6RF Discharge Orders: Discharge ED (Routine); Ordered 01/12/25 Ordered By: Song Watts Referrals: Pablo Bledsoe MD [Primary Care Provider] - Patient Instructions: Abdominal Pain (ED) Activity Restrictions/Additional Instructions: Please follow back up with your primary care provider for further evaluation. Your IUD is noted to be in place, lab work and imaging was normal here in the emergency department today. Please note that if you develop any fevers, start to feel sick in any way, or have any other concerns to return back to the emergency department as we discussed. Make sure that you are drinking plenty of fluids, Tylenol and ibuprofen for pain. Heat to your abdomen. Print Language: Latvian Coding Level of Care Code ED Grease Refining Supervisor for Yassine Rogers
[2025-01-12 13:50] LABS: Add Urine Microscopic? NO
[2025-01-12 13:50] LABS: Alanine Aminotransferase 53 U/L (0-33); Albumin Level 4.4 g/dL (3.5-5.2); Alkaline Phosphatase 95 U/L (35-105); Anion Gap 15.1 (5-19); Aspartate Amino Transferase 28 U/L (0-32); Blood Urea Nitrogen 9 mg/dL (6-20); Calcium 9.2 mg/dL (8.5-10.5); Carbon Dioxide 23 mmol/L (22-29); Chloride 105 mmol/L (98-107); Creatinine Clr Calc Pharmacy 115.5317; Glomerular Filtration Rate 89.7 mL/min (90-130); Glucose 106 mg/dL (65-115); Lipase 23 U/L (13-60); Osmolality Calculated 287 mOsm/kg (285-295); Potassium 4.1 mmol/L (3.5-5.1); Sodium 139 mmol/L (136-145); Total Bilirubin 0.7 mg/dL (0.15-1.2); Total Protein 7.4 g/dL (6.6-8.7)
[2025-01-12 13:55] LABS: Bilirubin Urine Negative (Negative); Blood Urine Negative (Negative); Glucose Urine UA Negative (Normal); Ketones Urine Negative (Negative); Leukocyte Esterase Urine Negative (Negative); Nitrate Urine Negative (Negative); Protein Urine Negative (Negative); Specific Gravity, Urine 1.015 (1.005-1.030); Urine Appearance Clear (CLEAR); Urine Color Yellow (Yellow); pH Urine 5.5 (5-7)
[2025-01-12 13:59] LABS: HCG, Serum Qual Negative (Negative)
[2025-01-12 14:06] LABS: Charge for UA Resulting for Rev
[2025-01-12] MEDS: ketorolac 60 mg/2 mL INJ 30 MG IVP (14:14)
[2025-01-12] MEDS: ondansetron 2 mg/ML SDV 2 mL 4 MG IVP (14:14)
[2025-01-12] MEDS: iohexol 350 mg/mL 500 mL Btl (per mL) IV (15:24)
[2025-01-12 16:50] VITALS: BP 127/83; PULSE 78; O2SAT 99
== END 2025-01-12 16:52 | disposition home or self-care (01) ==
PROVIDERS: Emergency Medicine; Emergency Provider Physician Assistant; PCP Family Medicine
DX: R10.30 Lower abdominal pain, unspecified (principal)
CPT/HCPCS: 36415; 74177; 80053; 81003; 83690; 84703; 85025; 96374; 96375; 99285; J1885; J2405

== ENCOUNTER → 2025-03-16 12:38 | Outpatient (BNVA) | payer MEDICAID, SELFPAY | PROVIDERS: PCP Family Medicine; Visit Provider Family Medicine | DX: R73.03 Prediabetes (principal) | CPT/HCPCS: 83036 ==

== ENCOUNTER → 2025-06-21 13:36 | Outpatient (BNVA) | payer MEDICAID, SELFPAY | PROVIDERS: PCP Family Medicine; Visit Provider Family Medicine | DX: Z13.6 Encounter for screening for cardiovascular disorders (principal); E11.9 Type 2 diabetes mellitus without complications; E55.9 Vitamin D deficiency, unspecified; E53.8 Deficiency of other specified B group vitamins; E03.9 Hypothyroidism, unspecified; Z51.81 Encounter for therapeutic drug level monitoring | CPT/HCPCS: 80053; 80061; 82306; 82607; 83036; 84439; 84443; 85025 ==

== ENCOUNTER → 2025-07-07 13:03 | Outpatient (BNVA) | payer MEDICAID, SELFPAY | PROVIDERS: PCP Family Medicine; Visit Provider Family Medicine | DX: N92.6 Irregular menstruation, unspecified (principal) | CPT/HCPCS: 84702 ==

== ENCOUNTER → 2025-08-15 11:19 | Outpatient (BNVA) | payer MEDICAID, SELFPAY | PROVIDERS: PCP Family Medicine; Visit Provider Family Medicine | DX: E03.9 Hypothyroidism, unspecified (principal) | CPT/HCPCS: 86376 ==

== ENCOUNTER → 2025-10-06 12:06 | Outpatient (BNVA) | payer MEDICAID, SELFPAY | PROVIDERS: PCP Family Medicine; Visit Provider Family Medicine | DX: E03.9 Hypothyroidism, unspecified (principal); E11.9 Type 2 diabetes mellitus without complications | CPT/HCPCS: 83036; 84439; 84443 ==